=== PATIENT | female | born 1945 | race Caucasian/White ===

== ENCOUNTER 2019-11-15 08:06 | Inpatient (IN) | payer OTHER ==
[2019-11-15] VITALS (7 sets, daily range): BP systolic 145–170; BP diastolic 65–90
[~2019-11-15] VITALS: Ht 165.1 cm; Wt 118.0 kg
[~2019-11-15 08:06] MED LIST: ASPIRIN CHILDRE81 MG PO; CIPROFLOXACIN500 MG PO; CITALOPRAM40 MG PO; COGENTIN0.5 MG PO; ISOSORBIDE30 MG PO; KEFLEX500 MG PO; LAMOTRIGINE25 MG PO; LASIX; METFORMIN; MOTRIN800 MG PO; OMEPRAZOLE D/R20 MG PO; RESTORIL15 MG; RISPERIDONE3 M1 PO; TYLENOL80 MG; ZOCOR40 MG PO; [UNRECOGNIZED DRUG - OTHER] PO; [UNRECOGNIZED DRUG - OTHER] PO
[2019-11-15 09:01] LABS: URINE AMPHETAMINES < 1000 (1000ng/ml); URINE BARBITURATES < 200 (200ng/ml); URINE BENZODIAZEPINES < 200 (200ng/ml); URINE CANNABINOIDS (THC) < 50 (50ng/ml); URINE COCAINE < 300 (300ng/ml); URINE METHADONE < 300 (300ng/ml); URINE OPIATES > 300 (300ng/ml)
[2019-11-15 09:04] LABS: URINE PHENCYCLIDINE < 25 (25ng/ml)
[2019-11-15 09:08] LABS: BASO % 0.4 % (0.0-1.0); EOS # 0.1 10*3/uL (0.0-0.4); EOS % 1.3 % (1.0-4.0); HEMATOCRIT 37.2 % (37.0-47.0); HEMOGLOBIN 11.4 g/dl (12.0-16.0); LYMPH # 1.3 10*3/uL (1.3-4.4); LYMPH % 13.8 % (27.0-41.0); MEAN CELL VOLUME 86.9 fl (81.0-99.0); MEAN CORPUSCULAR HGB 26.6 pg (27.0-31.0); MEAN CORPUSCULAR HGB CONC 30.6 g/dl (33.0-37.0); MEAN PLATELET VOLUME 11.4 fl (9.6-12.3); MONO # 0.6 10*3/uL (0.1-1.0); MONO % 6.9 % (3.0-9.0); NEUT % 77.2 % (47.0-73.0); PLATELET COUNT AUTOMATED 236 10*3/uL (130-400); RED BLOOD COUNT 4.28 10*6/uL (4.10-5.10); RED CELL DISTRI WIDTH 15.4 % (0-14.5); WHITE BLOOD COUNT 9.1 10*3/uL (4.8-10.8)
[2019-11-15 09:13] LABS: ACT PARTIAL THROMBO TIME 24.9 SECONDS (20.0-32.1); INTERNATIONAL NORM RATIO 0.9 (2.0-3.5)
[2019-11-15 09:16] LABS: ALBUMIN 3.3 gm/dl (3.1-4.5); ALKALINE PHOSPHATASE 111 U/L (45-117); BUN 7 mg/dl (7-24); CHLORIDE 103 mmol/L (98-107); SGOT/AST 12 IU/L (3-35); SGPT/ALT 16 U/L (12-78); SODIUM 140 mmol/L (136-145); TOTAL PROTEIN 7.1 gm/dL (6.4-8.2)
[2019-11-15 09:24] LABS: ETHYL ALCOHOL < 3.0 mg/dl (<3)
[2019-11-15 09:36] LABS: CLARITY SL CLOUDY (CLEAR); COLOR YELLOW (YELLOW); GLUCOSE NEGATIVE (NEGATIVE)
[2019-11-15 09:37] LABS: BACTERIA 4+; BILIRUBIN NEGATIVE (NEGATIVE); BLOOD NEGATIVE (NEGATIVE); KETONE NEGATIVE (NEGATIVE); LEUKO ESTERASE NEGATIVE (NEGATIVE); NITRITE POSITIVE (NEGATIVE); PH 7.5 (5.0-9.0); SPECIFIC GRAVITY 1.015 (1.005-1.030); UROBILINOGEN 0.2 E.U./dl (0.2-1.0)
[2019-11-15] MEDS ORDERED: FUROSEMIDE20 M1 PO (11:17)
[2019-11-15] MEDS ORDERED: LIPITOR40 MG PO (11:17)
[2019-11-15] MEDS ORDERED: PREDNISONE20 M1 PO (11:19)
[2019-11-15] MEDS ORDERED: NYSTOP60 GM TP (11:21)
[2019-11-15] MEDS ORDERED: GLUCOPHAGE500 M1 PO (11:23)
[2019-11-15] MEDS ORDERED: SYMB160 INH (11:24)
[2019-11-15] MEDS ORDERED: DICYCLOMINE HYD20 MG PO (11:25)
[2019-11-15] MEDS ORDERED: Ipratropium Brom3 ML INH (11:26)
[2019-11-15] MEDS ORDERED: ACETAMINOPHEN325 M2 PO (11:26)
[2019-11-15] MEDS ORDERED: TYLENOL WITH C1 EACH PO (11:28)
[2019-11-16 07:10] LABS: BASO % 0.3 % (0.0-1.0); EOS # 0.1 10*3/uL (0.0-0.4); EOS % 1.3 % (1.0-4.0); HEMATOCRIT 36.4 % (37.0-47.0); HEMOGLOBIN 11.2 g/dl (12.0-16.0); LYMPH # 1.4 10*3/uL (1.3-4.4); LYMPH % 20.1 % (27.0-41.0); MEAN CELL VOLUME 84.8 fl (81.0-99.0); MEAN CORPUSCULAR HGB 26.1 pg (27.0-31.0); MEAN CORPUSCULAR HGB CONC 30.8 g/dl (33.0-37.0); MEAN PLATELET VOLUME 11.8 fl (9.6-12.3); MONO # 0.6 10*3/uL (0.1-1.0); MONO % 8.4 % (3.0-9.0); NEUT # 4.8 10*3/uL (2.3-7.9); NEUT % 69.5 % (47.0-73.0); PLATELET COUNT AUTOMATED 235 10*3/uL (130-400); RED BLOOD COUNT 4.29 10*6/uL (4.10-5.10); RED CELL DISTRI WIDTH 15.6 % (0-14.5); WHITE BLOOD COUNT 6.9 10*3/uL (4.8-10.8)
[2019-11-16 07:31] LABS: BUN 7 mg/dl (7-24); CHLORIDE 104 mmol/L (98-107); SODIUM 138 mmol/L (136-145)
[2019-11-16 07:32] LABS: CREATININE 0.65 mg/dL (0.55-1.02)
[2019-11-16 08:00] VITALS: BP 136/73
[2019-11-16 12:00] VITALS: BP 103/77
[2019-11-16 16:00] VITALS: BP 110/64
[2019-11-16 20:00] VITALS: BP 112/62
[2019-11-17] VITALS: BP 116/57
[2019-11-17 08:00] VITALS: BP 143/61
[2019-11-17 12:00] VITALS: BP 129/54
[2019-11-17] MEDS ORDERED: TYLENOL WITH C1 EACH PO (15:09)
[2019-11-17 16:00] VITALS: BP 117/57
[2019-11-17 20:00] VITALS: BP 144/71
[2019-11-18] VITALS: BP 147/72
[2019-11-18 08:00] VITALS: BP 139/53
[2019-11-18 12:00] VITALS: BP 127/64
[2019-11-18 16:00] VITALS: BP 121/57
== END 2019-11-18 18:24 | disposition other institution (70) | DRG 690 ==
LOC: ED 08:06 → EDHOLD 10:10 → 5E 10:10
PROVIDERS: Emergency Medicine; Internal Medicine; ADMIT Internal Medicine
DX: N39.0 Urinary tract infection, site not specified (principal); F20.0 Paranoid schizophrenia; Z68.41 Body mass index [BMI] 40.0-44.9, adult; N39.41 Urge incontinence; D64.9 Anemia, unspecified; F17.210 Nicotine dependence, cigarettes, uncomplicated; I25.10 Atherosclerotic heart disease of native coronary artery without angina pectoris; K21.9 Gastro-esophageal reflux disease without esophagitis; E78.5 Hyperlipidemia, unspecified; K22.719 Barrett's esophagus with dysplasia, unspecified; M51.26 Other intervertebral disc displacement, lumbar region; E11.65 Type 2 diabetes mellitus with hyperglycemia; B96.1 Klebsiella pneumoniae [K. pneumoniae] as the cause of diseases classified elsewhere; Z88.8 Allergy status to other drugs, medicaments and biological substances; Z88.5 Allergy status to narcotic agent; Z79.899 Other long term (current) drug therapy; Z98.42 Cataract extraction status, left eye; Z98.41 Cataract extraction status, right eye; Z90.710 Acquired absence of both cervix and uterus; Z82.49 Family history of ischemic heart disease and other diseases of the circulatory system; R60.0 Localized edema

== ENCOUNTER → 2020-02-16 | Outpatient (CLI) | payer OTHER ==
[~2020-02-16] MED LIST changes: +ACETAMINOPHEN325 M2 PO; +DICYCLOMINE HYD20 MG PO; +FUROSEMIDE20 M1 PO; +GLUCOPHAGE500 M1 PO; +Ipratropium Brom3 ML INH; +LIPITOR40 MG PO; +NYSTOP60 GM TP; +PREDNISONE20 M1 PO; +SYMB160 INH; +TYLENOL WITH C1 EACH PO
== END | disposition home or self-care (01) ==
LOC: CT 09:36
DX: M19.011 Primary osteoarthritis, right shoulder (principal); M47.812 Spondylosis without myelopathy or radiculopathy, cervical region; M47.814 Spondylosis without myelopathy or radiculopathy, thoracic region

== ENCOUNTER 2020-10-04 10:10 | Inpatient (IN) | payer OTHER ==
[~2020-10-04] VITALS: Ht 167.6 cm; Wt 113.6 kg
[2020-10-04 10:46] LABS: BASO % 0.1 % (0.0-1.0); EOS % 0.3 % (1.0-4.0); HEMATOCRIT 35.9 % (37.0-47.0); LYMPH # 0.8 10*3/uL (1.3-4.4); MEAN CELL VOLUME 77.2 fl (81.0-99.0); MEAN CORPUSCULAR HGB 22.8 pg (27.0-31.0); MEAN CORPUSCULAR HGB CONC 29.5 g/dl (33.0-37.0); MEAN PLATELET VOLUME 11.1 fl (9.6-12.3); MONO # 0.3 10*3/uL (0.1-1.0); MONO % 4.3 % (3.0-9.0); NEUT # 6.7 10*3/uL (2.3-7.9); NEUT % 84.9 % (47.0-73.0); PLATELET COUNT AUTOMATED 260 10*3/uL (130-400); RED BLOOD COUNT 4.65 10*6/uL (4.10-5.10); RED CELL DISTRI WIDTH 16.8 % (0-14.5); WHITE BLOOD COUNT 7.9 10*3/uL (4.8-10.8)
[2020-10-04 10:50] VITALS: BP 120/66
[2020-10-04 11:01] LABS: ALBUMIN 3.1 gm/dl (3.1-4.5); ALKALINE PHOSPHATASE 93 U/L (45-117); BUN 8 mg/dl (7-24); CHLORIDE 103 mmol/L (98-107); CREATININE 0.71 mg/dL (0.55-1.02); LIPASE 102 U/L (73-393); POTASSIUM 4.1 mmol/L (3.5-5.1); SGOT/AST 13 IU/L (3-35); SGPT/ALT 15 U/L (12-78); SODIUM 135 mmol/L (136-145); TOTAL PROTEIN 7.1 gm/dL (6.4-8.2)
[2020-10-04 11:11] LABS: ACT PARTIAL THROMBO TIME 25.1 SECONDS (20.0-32.1); TROPONIN I < 0.015 ng/ml (<0.045)
[2020-10-04 12:30] VITALS: BP 127/79
[2020-10-04 13:19] LABS: ABG BASE EXCESS 0.1 mmol/L (-2.0-2.0); ARTERIAL BLOOD GAS PH 7.365 (7.35-7.45)
[2020-10-04 13:25] VITALS: BP 111/57
[2020-10-04 16:00] VITALS: BP 125/68
[2020-10-04 20:00] VITALS: BP 106/55
[2020-10-04] MEDS ORDERED: CALCIUM500 M1 PO (21:38)
[2020-10-04] MEDS ORDERED: CELEXA10 MG PO (21:39)
[2020-10-04] MEDS ORDERED: VITAMIN D350 MC2 PO (21:40)
[2020-10-04] MEDS ORDERED: DECADRON6 M1 PO (21:41)
[2020-10-04] MEDS ORDERED: MELATONIN10 M2 PO (21:46)
[2020-10-04] MEDS ORDERED: METFORMIN HYDR500 MG PO (21:47)
[2020-10-04] MEDS ORDERED: MILK OF MA400 MG/51 PO (21:49)
[2020-10-04] MEDS ORDERED: OMEPRAZOLE20 M2 PO (21:50)
[2020-10-04] MEDS ORDERED: RISPERDAL1 M1 PO (21:51)
[2020-10-05] VITALS: BP 141/64
[2020-10-05 06:56] LABS: BASO % 0.1 % (0.0-1.0); HEMATOCRIT 31.9 % (37.0-47.0); LYMPH # 1.5 10*3/uL (1.3-4.4); LYMPH % 21.4 % (27.0-41.0); MEAN CELL VOLUME 77.8 fl (81.0-99.0); MEAN CORPUSCULAR HGB 22.9 pg (27.0-31.0); MEAN CORPUSCULAR HGB CONC 29.5 g/dl (33.0-37.0); MEAN PLATELET VOLUME 11.6 fl (9.6-12.3); MONO # 0.6 10*3/uL (0.1-1.0); MONO % 9.1 % (3.0-9.0); NEUT # 4.8 10*3/uL (2.3-7.9); PLATELET COUNT AUTOMATED 259 10*3/uL (130-400); RED CELL DISTRI WIDTH 16.4 % (0-14.5)
[2020-10-05 07:24] LABS: CHLORIDE 103 mmol/L (98-107); POTASSIUM 3.7 mmol/L (3.5-5.1); SGOT/AST 11 IU/L (3-35); SGPT/ALT 14 U/L (12-78); SODIUM 134 mmol/L (136-145)
[2020-10-05 07:32] LABS: ALKALINE PHOSPHATASE 79 U/L (45-117); BUN 16 mg/dl (7-24); CPK 68 U/L (26-192); CREATININE 0.56 mg/dL (0.55-1.02); LDH 280 U/L (84-246); TOTAL PROTEIN 6.7 gm/dL (6.4-8.2)
[2020-10-05 07:57] LABS: ABG BASE EXCESS 2.8 mmol/L (-2.0-2.0); ARTERIAL BLOOD GAS PH 7.382 (7.35-7.45)
[2020-10-05 08:00] VITALS: BP 144/79
[2020-10-05 12:00] VITALS: BP 129/58
[2020-10-05 15:00] VITALS: BP 136/66
[2020-10-05 20:00] VITALS: BP 150/67
[2020-10-06] VITALS: BP 134/69
[2020-10-06 06:45] LABS: BASO % 0.2 % (0.0-1.0); EOS % 0.1 % (1.0-4.0); HEMATOCRIT 32.3 % (37.0-47.0); LYMPH # 2.7 10*3/uL (1.3-4.4); MEAN CELL VOLUME 77.8 fl (81.0-99.0); MEAN CORPUSCULAR HGB 22.2 pg (27.0-31.0); MEAN CORPUSCULAR HGB CONC 28.5 g/dl (33.0-37.0); MEAN PLATELET VOLUME 11.7 fl (9.6-12.3); MONO # 0.6 10*3/uL (0.1-1.0); MONO % 6.5 % (3.0-9.0); NEUT # 6.2 10*3/uL (2.3-7.9); NEUT % 64.9 % (47.0-73.0); PLATELET COUNT AUTOMATED 261 10*3/uL (130-400); RED BLOOD COUNT 4.15 10*6/uL (4.10-5.10); RED CELL DISTRI WIDTH 16.5 % (0-14.5); WHITE BLOOD COUNT 9.5 10*3/uL (4.8-10.8)
[2020-10-06 06:57] LABS: ALBUMIN 2.9 gm/dl (3.1-4.5); ALKALINE PHOSPHATASE 76 U/L (45-117); BUN 19 mg/dl (7-24); CHLORIDE 105 mmol/L (98-107); LDH 293 U/L (84-246); POTASSIUM 3.9 mmol/L (3.5-5.1); SGOT/AST 10 IU/L (3-35); SGPT/ALT 12 U/L (12-78); SODIUM 139 mmol/L (136-145); TOTAL PROTEIN 6.6 gm/dL (6.4-8.2)
[2020-10-06 06:58] LABS: CPK 42 U/L (26-192)
[2020-10-06 07:40] VITALS: BP 117/67
[2020-10-06 12:00] VITALS: BP 147/88
[2020-10-06 16:00] VITALS: BP 125/66
[2020-10-06 20:29] VITALS: BP 157/73
[2020-10-07] VITALS: BP 169/70; BP 97/66
[2020-10-07 06:24] LABS: BASO % 0.1 % (0.0-1.0); HEMATOCRIT 32.8 % (37.0-47.0); LYMPH # 2.1 10*3/uL (1.3-4.4); LYMPH % 20.4 % (27.0-41.0); MEAN CELL VOLUME 77.7 fl (81.0-99.0); MEAN CORPUSCULAR HGB 22.7 pg (27.0-31.0); MEAN CORPUSCULAR HGB CONC 29.3 g/dl (33.0-37.0); MEAN PLATELET VOLUME 10.6 fl (9.6-12.3); MONO # 0.7 10*3/uL (0.1-1.0); MONO % 7.2 % (3.0-9.0); NEUT # 7.3 10*3/uL (2.3-7.9); PLATELET COUNT AUTOMATED 266 10*3/uL (130-400); RED BLOOD COUNT 4.22 10*6/uL (4.10-5.10); RED CELL DISTRI WIDTH 16.3 % (0-14.5); WHITE BLOOD COUNT 10.1 10*3/uL (4.8-10.8)
[2020-10-07 07:23] LABS: ALBUMIN 3.1 gm/dl (3.1-4.5); BUN 14 mg/dl (7-24); CHLORIDE 102 mmol/L (98-107); CREATININE 0.54 mg/dL (0.55-1.02); POTASSIUM 3.5 mmol/L (3.5-5.1); SGOT/AST 12 IU/L (3-35); SGPT/ALT 12 U/L (12-78); SODIUM 137 mmol/L (136-145); TOTAL PROTEIN 6.8 gm/dL (6.4-8.2)
[2020-10-07 07:26] LABS: ALKALINE PHOSPHATASE 74 U/L (45-117); CPK 37 U/L (26-192); LDH 309 U/L (84-246)
[2020-10-07 08:00] VITALS: BP 126/64
[2020-10-07 12:00] VITALS: BP 153/72
[2020-10-07 16:00] VITALS: BP 108/52
[2020-10-07 20:00] VITALS: BP 98/63
[2020-10-08] VITALS: BP 172/78
[2020-10-08 06:15] LABS: BASO % 0.1 % (0.0-1.0); EOS % 0.1 % (1.0-4.0); HEMATOCRIT 30.6 % (37.0-47.0); LYMPH # 2.6 10*3/uL (1.3-4.4); MEAN CELL VOLUME 77.5 fl (81.0-99.0); MEAN CORPUSCULAR HGB 22.8 pg (27.0-31.0); MEAN CORPUSCULAR HGB CONC 29.4 g/dl (33.0-37.0); MEAN PLATELET VOLUME 11.3 fl (9.6-12.3); MONO # 0.7 10*3/uL (0.1-1.0); MONO % 8.7 % (3.0-9.0); NEUT # 4.4 10*3/uL (2.3-7.9); NEUT % 57.5 % (47.0-73.0); PLATELET COUNT AUTOMATED 269 10*3/uL (130-400); RED BLOOD COUNT 3.95 10*6/uL (4.10-5.10); RED CELL DISTRI WIDTH 16.3 % (0-14.5); WHITE BLOOD COUNT 7.7 10*3/uL (4.8-10.8)
[2020-10-08 06:37] LABS: ALBUMIN 2.9 gm/dl (3.1-4.5); BUN 15 mg/dl (7-24); CHLORIDE 100 mmol/L (98-107); CREATININE 0.51 mg/dL (0.55-1.02); LDH 312 U/L (84-246); POTASSIUM 3.5 mmol/L (3.5-5.1); SGOT/AST 9 IU/L (3-35); SGPT/ALT 11 U/L (12-78); SODIUM 138 mmol/L (136-145); TOTAL PROTEIN 6.1 gm/dL (6.4-8.2)
[2020-10-08 06:38] LABS: ALKALINE PHOSPHATASE 69 U/L (45-117); CPK 27 U/L (26-192)
[2020-10-08 08:00] VITALS: BP 135/66
[2020-10-08 12:00] VITALS: BP 113/56
[2020-10-08 16:00] VITALS: BP 119/59
[2020-10-08 20:00] VITALS: BP 129/67
[2020-10-09] VITALS: BP 141/66
[2020-10-09 06:57] LABS: BASO % 0.1 % (0.0-1.0); EOS # 0.1 10*3/uL (0.0-0.4); EOS % 0.7 % (1.0-4.0); HEMATOCRIT 29.9 % (37.0-47.0); LYMPH # 2.9 10*3/uL (1.3-4.4); LYMPH % 35.3 % (27.0-41.0); MEAN CELL VOLUME 77.3 fl (81.0-99.0); MEAN CORPUSCULAR HGB 22.5 pg (27.0-31.0); MEAN CORPUSCULAR HGB CONC 29.1 g/dl (33.0-37.0); MONO # 0.8 10*3/uL (0.1-1.0); MONO % 10.1 % (3.0-9.0); NEUT # 4.3 10*3/uL (2.3-7.9); NEUT % 53.3 % (47.0-73.0); PLATELET COUNT AUTOMATED 255 10*3/uL (130-400); RED BLOOD COUNT 3.87 10*6/uL (4.10-5.10); RED CELL DISTRI WIDTH 16.1 % (0-14.5); WHITE BLOOD COUNT 8.1 10*3/uL (4.8-10.8)
[2020-10-09 07:18] LABS: ALBUMIN 2.9 gm/dl (3.1-4.5); ALKALINE PHOSPHATASE 65 U/L (45-117); BUN 15 mg/dl (7-24); CHLORIDE 101 mmol/L (98-107); CREATININE 0.51 mg/dL (0.55-1.02); LDH 282 U/L (84-246); POTASSIUM 3.6 mmol/L (3.5-5.1); SGOT/AST 13 IU/L (3-35); SGPT/ALT 10 U/L (12-78); SODIUM 138 mmol/L (136-145); TOTAL PROTEIN 5.9 gm/dL (6.4-8.2)
[2020-10-09 07:21] LABS: CPK 54 U/L (26-192)
[2020-10-09 08:00] VITALS: BP 142/68
[2020-10-09 12:00] VITALS: BP 127/79
[2020-10-09 16:00] VITALS: BP 140/56
== END 2020-10-09 19:10 | disposition other institution (70) | DRG 177 ==
LOC: ED 10:10 → 4E 12:20 → EDHOLD 12:20 → 4E 12:43
PROVIDERS: Emergency Medicine; Internal Medicine; Internal Medicine Critical Care Medicine; ADMIT Family Medicine; ATTEND Family Medicine
PROC: 5A0935A Assistance with Respiratory Ventilation, Less than 24 Consecutive Hours, High Flow/Velocity Cannula (ICD-10-PCS; 2020-10-04)
PROC: XW033E5 Introduction of Remdesivir Anti-infective into Peripheral Vein, Percutaneous Approach, New Technology Group 5 (ICD-10-PCS; principal; 2020-10-05)
PROC: 5A0945A Assistance with Respiratory Ventilation, 24-96 Consecutive Hours, High Flow/Velocity Cannula (ICD-10-PCS; 2020-10-07)
DX: U07.1 COVID-19 (principal); J96.01 Acute respiratory failure with hypoxia; J12.82 Pneumonia due to coronavirus disease 2019; F20.0 Paranoid schizophrenia; E87.1 Hypo-osmolality and hyponatremia; D68.59 Other primary thrombophilia; Z68.41 Body mass index [BMI] 40.0-44.9, adult; D50.9 Iron deficiency anemia, unspecified; E66.01 Morbid (severe) obesity due to excess calories; K22.70 Barrett's esophagus without dysplasia; K21.9 Gastro-esophageal reflux disease without esophagitis; E11.65 Type 2 diabetes mellitus with hyperglycemia; F41.1 Generalized anxiety disorder; Z66 Do not resuscitate; J44.9 Chronic obstructive pulmonary disease, unspecified; F32.9 Major depressive disorder, single episode, unspecified; I25.10 Atherosclerotic heart disease of native coronary artery without angina pectoris; E78.5 Hyperlipidemia, unspecified; F17.210 Nicotine dependence, cigarettes, uncomplicated; Z90.710 Acquired absence of both cervix and uterus; Z88.8 Allergy status to other drugs, medicaments and biological substances; Z79.1 Long term (current) use of non-steroidal anti-inflammatories (NSAID); Z79.82 Long term (current) use of aspirin; Z79.899 Other long term (current) drug therapy; Z79.84 Long term (current) use of oral hypoglycemic drugs; Z88.6 Allergy status to analgesic agent; Z88.5 Allergy status to narcotic agent

== ENCOUNTER 2021-01-28 23:48 | Inpatient (IN) | payer OTHER ==
[~2021-01-28] VITALS: Ht 165.1 cm; Wt 115.9 kg
[~2021-01-28 23:48] MED LIST changes: +CALCIUM500 M1 PO; +CELEXA10 MG PO; +DECADRON6 M1 PO; +MELATONIN10 M2 PO; +METFORMIN HYDR500 MG PO; +MILK OF MA400 MG/51 PO; +OMEPRAZOLE20 M2 PO; +RISPERDAL1 M1 PO; +VITAMIN D350 MC2 PO
[2021-01-29] VITALS (10 sets, daily range): BP systolic 98–145; BP diastolic 44–80
[2021-01-29 00:23] LABS: BASO # 0.1 10*3/uL (0.0-0.1); BASO % 0.6 % (0.0-1.0); EOS # 0.2 10*3/uL (0.0-0.4); EOS % 1.8 % (1.0-4.0); HEMATOCRIT 28.9 % (37.0-47.0); LYMPH # 2.5 10*3/uL (1.3-4.4); LYMPH % 29.6 % (27.0-41.0); MEAN CORPUSCULAR HGB 19.2 pg (27.0-31.0); MEAN PLATELET VOLUME 9.9 fl (9.6-12.3); MONO # 0.7 10*3/uL (0.1-1.0); MONO % 8.6 % (3.0-9.0); NEUT % 59.2 % (47.0-73.0); PLATELET COUNT AUTOMATED 311 10*3/uL (130-400); RED BLOOD COUNT 4.07 10*6/uL (4.10-5.10); RED CELL DISTRI WIDTH 18.8 % (0-14.5); WHITE BLOOD COUNT 8.5 10*3/uL (4.8-10.8)
[2021-01-29 00:34] LABS: ACT PARTIAL THROMBO TIME 23.2 SECONDS (20.0-32.1)
[2021-01-29 00:53] LABS: ALBUMIN 3.2 gm/dl (3.1-4.5); ALKALINE PHOSPHATASE 85 U/L (45-117); BUN 11 mg/dl (7-24); CHLORIDE 103 mmol/L (98-107); CPK 39 U/L (26-192); CREATININE 0.65 mg/dL (0.55-1.02); SGOT/AST 9 IU/L (3-35); SGPT/ALT 13 U/L (12-78); SODIUM 137 mmol/L (136-145); TOTAL PROTEIN 6.7 gm/dL (6.4-8.2)
[2021-01-29 00:54] LABS: CKMB < 1.0 ng/ml (0.5-3.6)
[2021-01-29 00:55] LABS: TROPONIN I < 0.015 ng/ml (<0.045)
[2021-01-29 01:43] LABS: BILIRUBIN Negative (Negative); BLOOD Negative (Negative); CLARITY Clear (Clear); COLOR Yellow (Yellow); GLUCOSE Negative (Negative); KETONE Negative (Negative); LEUKO ESTERASE Negative (Negative); NITRITE Negative (Negative); PH 5.5 (4.5-8.0); UROBILINOGEN 0.2 E.U./dl (0.0-1.0)
[2021-01-29 02:29] LABS: URINE AMPHETAMINES < 1000 (1000ng/ml); URINE BARBITURATES < 200 (200ng/ml); URINE BENZODIAZEPINES < 200 (200ng/ml); URINE CANNABINOIDS (THC) < 50 (50ng/ml); URINE COCAINE < 300 (300ng/ml); URINE METHADONE < 300 (300ng/ml); URINE OPIATES < 300 (300ng/ml)
[2021-01-29 02:33] LABS: URINE PHENCYCLIDINE < 25 (25ng/ml)
[2021-01-29 09:34] LABS: ABG BASE EXCESS 1.7 mmol/L (-2.0-2.0); ARTERIAL BLOOD GAS PH 7.334 (7.35-7.45); ARTERIAL BLOOD GAS PO2 70.5 (80-90)
[2021-01-29] MEDS ORDERED: VALISONE 0.1% C15 GM T (14:38)
[2021-01-30] VITALS: BP 105/50
[2021-01-30 06:43] LABS: BASO % 0.3 % (0.0-1.0); EOS # 0.2 10*3/uL (0.0-0.4); EOS % 1.6 % (1.0-4.0); HEMATOCRIT 29.3 % (37.0-47.0); LYMPH # 2.3 10*3/uL (1.3-4.4); LYMPH % 19.7 % (27.0-41.0); MEAN CELL VOLUME 71.3 fl (81.0-99.0); MEAN CORPUSCULAR HGB 19.5 pg (27.0-31.0); MEAN CORPUSCULAR HGB CONC 27.3 g/dl (33.0-37.0); MEAN PLATELET VOLUME 10.4 fl (9.6-12.3); MONO % 8.2 % (3.0-9.0); NEUT # 8.1 10*3/uL (2.3-7.9); NEUT % 69.7 % (47.0-73.0); PLATELET COUNT AUTOMATED 341 10*3/uL (130-400); RED BLOOD COUNT 4.11 10*6/uL (4.10-5.10); RED CELL DISTRI WIDTH 18.8 % (0-14.5); WHITE BLOOD COUNT 11.7 10*3/uL (4.8-10.8)
[2021-01-30 06:56] LABS: CHLORIDE 100 mmol/L (98-107); POTASSIUM 3.6 mmol/L (3.5-5.1); SODIUM 136 mmol/L (136-145)
[2021-01-30 07:05] LABS: BUN 13 mg/dl (7-24); CREATININE 0.74 mg/dL (0.55-1.02)
[2021-01-30 08:00] VITALS: BP 132/64
[2021-01-30 12:00] VITALS: BP 118/60
[2021-01-30 16:00] VITALS: BP 114/69
[2021-01-30 20:00] VITALS: BP 135/70
[2021-01-31] VITALS: BP 153/76
[2021-01-31 08:00] VITALS: BP 125/56
[2021-01-31 08:03] LABS: BASO % 0.3 % (0.0-1.0); EOS # 0.1 10*3/uL (0.0-0.4); EOS % 1.1 % (1.0-4.0); HEMATOCRIT 28.1 % (37.0-47.0); LYMPH # 1.1 10*3/uL (1.3-4.4); LYMPH % 11.8 % (27.0-41.0); MEAN CELL VOLUME 71.5 fl (81.0-99.0); MEAN CORPUSCULAR HGB 19.3 pg (27.0-31.0); MEAN PLATELET VOLUME 9.7 fl (9.6-12.3); MONO # 0.9 10*3/uL (0.1-1.0); NEUT # 7.3 10*3/uL (2.3-7.9); NEUT % 77.5 % (47.0-73.0); PLATELET COUNT AUTOMATED 304 10*3/uL (130-400); RED BLOOD COUNT 3.93 10*6/uL (4.10-5.10); RED CELL DISTRI WIDTH 18.7 % (0-14.5); WHITE BLOOD COUNT 9.4 10*3/uL (4.8-10.8)
[2021-01-31 08:25] LABS: ALBUMIN 3.2 gm/dl (3.1-4.5); ALKALINE PHOSPHATASE 95 U/L (45-117); BUN 11 mg/dl (7-24); CHLORIDE 96 mmol/L (98-107); CREATININE 0.64 mg/dL (0.55-1.02); POTASSIUM 3.5 mmol/L (3.5-5.1); SGOT/AST 13 IU/L (3-35); SGPT/ALT 13 U/L (12-78); SODIUM 133 mmol/L (136-145); TOTAL PROTEIN 7.1 gm/dL (6.4-8.2); URIC ACID 6.5 mg/dL (2.6-6.0)
[2021-01-31 12:00] VITALS: BP 131/62
[2021-01-31] MEDS ORDERED: FUROSEMIDE40 MG PO (12:57)
[2021-01-31 16:00] VITALS: BP 128/68
[2021-01-31 20:00] VITALS: BP 116/55
[2021-02-01] VITALS: BP 132/59
[2021-02-01 08:00] VITALS: BP 101/45
[2021-02-01 12:00] VITALS: BP 137/82
== END 2021-02-01 16:26 | DRG 291 ==
LOC: ED 23:48 → 4E 01-29 08:18 → EDHOLD 01-29 08:18 → 4E 01-29 14:01
PROVIDERS: Emergency Medicine; Student in an Organized Health Care Education/Training Program; ADMIT Internal Medicine; ATTEND Internal Medicine
PROC: 5A09357 Assistance with Respiratory Ventilation, Less than 24 Consecutive Hours, Continuous Positive Airway Pressure (ICD-10-PCS; principal; 2021-01-29)
PROC: 5A09357 Assistance with Respiratory Ventilation, Less than 24 Consecutive Hours, Continuous Positive Airway Pressure (ICD-10-PCS; 2021-01-30)
PROC: 5A09357 Assistance with Respiratory Ventilation, Less than 24 Consecutive Hours, Continuous Positive Airway Pressure (ICD-10-PCS; 2021-01-31)
PROC: 5A09357 Assistance with Respiratory Ventilation, Less than 24 Consecutive Hours, Continuous Positive Airway Pressure (ICD-10-PCS; 2021-02-01)
DX: I50.31 Acute diastolic (congestive) heart failure (principal); J96.01 Acute respiratory failure with hypoxia; G93.41 Metabolic encephalopathy; F20.0 Paranoid schizophrenia; I25.10 Atherosclerotic heart disease of native coronary artery without angina pectoris; K21.9 Gastro-esophageal reflux disease without esophagitis; E11.65 Type 2 diabetes mellitus with hyperglycemia; N39.41 Urge incontinence; F17.210 Nicotine dependence, cigarettes, uncomplicated; S31.104A Unspecified open wound of abdominal wall, left lower quadrant without penetration into peritoneal cavity, initial encounter; S31.103A Unspecified open wound of abdominal wall, right lower quadrant without penetration into peritoneal cavity, initial encounter; X58.XXXA Exposure to other specified factors, initial encounter; D50.9 Iron deficiency anemia, unspecified; E78.5 Hyperlipidemia, unspecified; M50.220 Other cervical disc displacement, mid-cervical region, unspecified level; Z20.822 Contact with and (suspected) exposure to COVID-19; Z88.6 Allergy status to analgesic agent; Z88.8 Allergy status to other drugs, medicaments and biological substances; Z98.42 Cataract extraction status, left eye; Z98.41 Cataract extraction status, right eye; Z90.710 Acquired absence of both cervix and uterus; Z90.49 Acquired absence of other specified parts of digestive tract; Z82.49 Family history of ischemic heart disease and other diseases of the circulatory system; Y93.89 Activity, other specified; Y92.89 Other specified places as the place of occurrence of the external cause; Y99.8 Other external cause status

== ENCOUNTER 2021-03-26 06:50 | Inpatient (IN) | payer OTHER ==
[~2021-03-26] VITALS: Ht 165.1 cm; Wt 119.7 kg
[~2021-03-26 06:50] MED LIST changes: +FUROSEMIDE40 MG PO; +VALISONE 0.1% C15 GM T
[2021-03-26 06:54] VITALS: BP 129/62
[2021-03-26 07:54] LABS: HEMATOCRIT 26.3 % (37.0-47.0); MEAN CELL VOLUME 68.7 fl (81.0-99.0); MEAN CORPUSCULAR HGB 19.1 pg (27.0-31.0); MEAN CORPUSCULAR HGB CONC 27.8 g/dl (33.0-37.0); MEAN PLATELET VOLUME 9.8 fl (9.6-12.3); NUCLEATED RED BLOOD CELL 0.1 % (0.0-0.0); PLATELET COUNT AUTOMATED 318 10*3/uL (130-400); RED BLOOD COUNT 3.83 10*6/uL (4.10-5.10); RED CELL DISTRI WIDTH 19.6 % (0-14.5)
[2021-03-26 08:10] LABS: MICROCYTOSIS MODERATE; OVALOCYTES FEW; PLATELET SUFFICIENCY NORMAL (NORMAL); POLYCHROMASIA SLIGHT; SCHISTOCYTES FEW; TOTAL CELLS COUNTED 100 #CELLS
[2021-03-26 08:12] LABS: ALKALINE PHOSPHATASE 94 U/L (45-117); BUN 6 mg/dl (7-24); CHLORIDE 97 mmol/L (98-107); CREATININE 0.68 mg/dL (0.55-1.02); LIPASE 49 U/L (73-393); POTASSIUM 3.4 mmol/L (3.5-5.1); SGOT/AST 9 IU/L (3-35); SGPT/ALT 11 U/L (12-78); SODIUM 130 mmol/L (136-145); TROPONIN I < 0.015 ng/ml (<0.045)
[2021-03-26 10:25] VITALS: BP 150/74
[2021-03-26] MEDS ORDERED: BISACODYL10 MG R (10:31)
[2021-03-26] MEDS ORDERED: CELEXA10 MG PO (10:33)
[2021-03-26] MEDS ORDERED: FLEET ENEMA EX230 M1 R (10:34)
[2021-03-26] MEDS ORDERED: TYLENOL EXTRA500 MG PO (11:00)
[2021-03-26 11:09] LABS: ARTERIAL BLOOD GAS PH 7.425 (7.35-7.45); ARTERIAL BLOOD GAS PO2 58.1 (80-90)
[2021-03-26 12:00] VITALS: BP 131/56
[2021-03-26 16:00] VITALS: BP 120/60
[2021-03-26 20:00] VITALS: BP 125/66
[2021-03-27] VITALS: BP 103/62
[2021-03-27 06:27] LABS: BASO % 0.1 % (0.0-1.0); EOS % 0.2 % (1.0-4.0); HEMATOCRIT 26.4 % (37.0-47.0); LYMPH # 1.1 10*3/uL (1.3-4.4); LYMPH % 5.3 % (27.0-41.0); MEAN CORPUSCULAR HGB 19.1 pg (27.0-31.0); MEAN CORPUSCULAR HGB CONC 27.3 g/dl (33.0-37.0); MONO # 1.2 10*3/uL (0.1-1.0); MONO % 5.8 % (3.0-9.0); NEUT # 18.1 10*3/uL (2.3-7.9); NEUT % 87.6 % (47.0-73.0); PLATELET COUNT AUTOMATED 331 10*3/uL (130-400); RED BLOOD COUNT 3.77 10*6/uL (4.10-5.10); RED CELL DISTRI WIDTH 19.9 % (0-14.5); WHITE BLOOD COUNT 20.6 10*3/uL (4.8-10.8)
[2021-03-27 06:38] LABS: ALBUMIN 2.5 gm/dl (3.1-4.5); ALKALINE PHOSPHATASE 96 U/L (45-117); BUN 10 mg/dl (7-24); CHLORIDE 100 mmol/L (98-107); CHOLESTEROL 112 mg/dL (<200); CREATININE 0.52 mg/dL (0.55-1.02); FREE T4 1.17 ng/dl (0.76-1.46); LDL CHOLESTEROL 46 mg/dL (9-159); POTASSIUM 3.8 mmol/L (3.5-5.1); SGOT/AST 8 IU/L (3-35); SGPT/ALT 10 U/L (12-78); SODIUM 134 mmol/L (136-145); TOTAL PROTEIN 6.9 gm/dL (6.4-8.2); TRIGLYCERIDES 107 mg/dl (<150)
[2021-03-27 08:00] VITALS: BP 106/68
[2021-03-27 08:30] LABS: VITAMIN D, 25-HYDROXY 26.2 ng/mL (30-100)
[2021-03-27 12:00] VITALS: BP 126/68
[2021-03-27 16:00] VITALS: BP 109/56
[2021-03-27 20:00] VITALS: BP 128/54
[2021-03-28] VITALS: BP 120/52
[2021-03-28 08:00] VITALS: BP 143/66
[2021-03-28 09:41] LABS: BASO % 0.2 % (0.0-1.0); EOS # 0.2 10*3/uL (0.0-0.4); HEMATOCRIT 26.6 % (37.0-47.0); LYMPH # 1.4 10*3/uL (1.3-4.4); MEAN CELL VOLUME 70.6 fl (81.0-99.0); MEAN CORPUSCULAR HGB 19.4 pg (27.0-31.0); MEAN CORPUSCULAR HGB CONC 27.4 g/dl (33.0-37.0); MEAN PLATELET VOLUME 10.2 fl (9.6-12.3); MONO # 0.8 10*3/uL (0.1-1.0); NEUT # 8.8 10*3/uL (2.3-7.9); NEUT % 78.3 % (47.0-73.0); PLATELET COUNT AUTOMATED 336 10*3/uL (130-400); RED BLOOD COUNT 3.77 10*6/uL (4.10-5.10); RED CELL DISTRI WIDTH 19.5 % (0-14.5); WHITE BLOOD COUNT 11.3 10*3/uL (4.8-10.8)
[2021-03-28 09:53] LABS: BUN 9 mg/dl (7-24); CHLORIDE 100 mmol/L (98-107)
[2021-03-28 09:56] LABS: CREATININE 0.53 mg/dL (0.55-1.02); POTASSIUM 3.7 mmol/L (3.5-5.1); SODIUM 132 mmol/L (136-145)
[2021-03-28 12:00] VITALS: BP 112/58
[2021-03-28 16:00] VITALS: BP 136/70
[2021-03-28 18:00] VITALS: BP 136/70
[2021-03-28 20:00] VITALS: BP 139/62
[2021-03-29] VITALS: BP 136/60
[2021-03-29 08:00] VITALS: BP 142/68
[2021-03-29 12:00] VITALS: BP 129/66
[2021-03-29 16:00] VITALS: BP 138/79
[2021-03-30] VITALS: BP 148/86
[2021-03-30 08:21] VITALS: BP 136/72
[2021-03-30 10:44] VITALS: BP 150/76
[2021-03-30] MEDS ORDERED: LEVOFLOXACIN750 M2 PO (12:28)
== END 2021-03-30 15:01 | DRG 871 ==
LOC: ED 06:50 → EDHOLD 08:38 → 5E 08:38
PROVIDERS: Emergency Medicine; Registered Nurse; ADMIT Internal Medicine; ATTEND Internal Medicine
DX: A41.9 Sepsis, unspecified organism (principal); J96.01 Acute respiratory failure with hypoxia; I50.33 Acute on chronic diastolic (congestive) heart failure; J15.6 Pneumonia due to other Gram-negative bacteria; E44.0 Moderate protein-calorie malnutrition; E87.2 Acidosis; F20.0 Paranoid schizophrenia; Z68.41 Body mass index [BMI] 40.0-44.9, adult; R65.20 Severe sepsis without septic shock; K21.9 Gastro-esophageal reflux disease without esophagitis; K22.70 Barrett's esophagus without dysplasia; Z20.822 Contact with and (suspected) exposure to COVID-19; Z96.659 Presence of unspecified artificial knee joint; I25.10 Atherosclerotic heart disease of native coronary artery without angina pectoris; E78.2 Mixed hyperlipidemia; E11.65 Type 2 diabetes mellitus with hyperglycemia; D50.9 Iron deficiency anemia, unspecified; S31.103A Unspecified open wound of abdominal wall, right lower quadrant without penetration into peritoneal cavity, initial encounter; Z88.6 Allergy status to analgesic agent; Z88.8 Allergy status to other drugs, medicaments and biological substances; Z90.710 Acquired absence of both cervix and uterus; Z82.49 Family history of ischemic heart disease and other diseases of the circulatory system; X58.XXXA Exposure to other specified factors, initial encounter; Y93.89 Activity, other specified; Y92.89 Other specified places as the place of occurrence of the external cause; Y99.8 Other external cause status

== ENCOUNTER 2021-09-28 10:54 | Emergency (ER) | payer OTHER ==
[~2021-09-28] VITALS: Ht 152.4 cm
[~2021-09-28 10:54] MED LIST changes: +BISACODYL10 MG R; +FLEET ENEMA EX230 M1 R; +LEVOFLOXACIN750 M2 PO; +TYLENOL EXTRA500 MG PO
[2021-09-28 11:32] LABS: HEMATOCRIT 24.8 % (37.0-47.0); MEAN CELL VOLUME 68.5 fl (81.0-99.0); MEAN CORPUSCULAR HGB 18.2 pg (27.0-31.0); MEAN CORPUSCULAR HGB CONC 26.6 g/dl (33.0-37.0); MEAN PLATELET VOLUME 10.2 fl (9.6-12.3); PLATELET COUNT AUTOMATED 332 10*3/uL (130-400); RED BLOOD COUNT 3.62 10*6/uL (4.10-5.10); RED CELL DISTRI WIDTH 18.7 % (0-14.5); WHITE BLOOD COUNT 7.3 10*3/uL (4.8-10.8)
[2021-09-28 11:43] LABS: BUN 12 mg/dl (7-24); CHLORIDE 98 mmol/L (98-107); CREATININE 0.71 mg/dL (0.55-1.02); SODIUM 135 mmol/L (136-145)
[2021-09-28 11:59] LABS: MICROCYTOSIS MARKED; PLATELET SUFFICIENCY NORMAL (NORMAL); TOTAL CELLS COUNTED 100 #CELLS
[2021-09-28 12:00] LABS: POLYCHROMASIA SLIGHT
[2021-09-28 13:12] VITALS: BP 130/66
[2021-09-28 13:44] VITALS: BP 125/64
[2021-09-28 14:41] VITALS: BP 121/55
[2021-09-28 15:41] VITALS: BP 107/47
== END 2021-09-28 17:46 ==
LOC: ED 10:54
PROVIDERS: Family Medicine
DX: D64.9 Anemia, unspecified (principal); F17.200 Nicotine dependence, unspecified, uncomplicated; Z88.6 Allergy status to analgesic agent; Z79.899 Other long term (current) drug therapy; Z79.2 Long term (current) use of antibiotics; Z79.82 Long term (current) use of aspirin; Z90.710 Acquired absence of both cervix and uterus; Z96.659 Presence of unspecified artificial knee joint; Z98.61 Coronary angioplasty status

== ENCOUNTER 2022-11-22 10:07 | Inpatient (IN) | payer OTHER ==
[~2022-11-22] VITALS: Ht 167.6 cm; Wt 116.0 kg
[2022-11-22] VITALS (34 sets, daily range): BP systolic 58–205; BP diastolic 30–96
[~2022-11-22 10:07] MED LIST changes: +BENADRYL ALLERG25 M5 PO; +FEROSUL325 MG PO; +GNP ANTACID-AN1 EACH PO; +LEXAPRO20 MG PO; +NEXIUM20 M1 PO; +PREDNISONE10 MG PO; +RISPERDAL2 M1 PO; +TUMS200 MG PO; +ZOFRAN4 MG PO
[2022-11-22 13:55] LABS: BASO % 0.2 % (0.0-1.0); HEMATOCRIT 39.3 % (37.0-47.0); LYMPH # 0.4 10*3/uL (1.3-4.4); LYMPH % 5.7 % (27.0-41.0); MEAN CELL VOLUME 91.4 fl (81.0-99.0); MEAN CORPUSCULAR HGB 26.3 pg (27.0-31.0); MEAN CORPUSCULAR HGB CONC 28.8 g/dl (33.0-37.0); MEAN PLATELET VOLUME 11.4 fl (9.6-12.3); MONO # 0.5 10*3/uL (0.1-1.0); MONO % 7.4 % (3.0-9.0); NEUT # 5.5 10*3/uL (2.3-7.9); NEUT % 86.4 % (47.0-73.0); PLATELET COUNT AUTOMATED 146 10*3/uL (130-400); RED CELL DISTRI WIDTH 15.1 % (0-14.5); WHITE BLOOD COUNT 6.3 10*3/uL (4.8-10.8)
[2022-11-22 14:01] LABS: ALKALINE PHOSPHATASE 69 U/L (46-116); BUN 15 mg/dl (9-23); CHLORIDE 94 mmol/L (98-107); LIPASE 24 U/L (12-53); POTASSIUM 5.9 mmol/L (3.4-5.1); SGPT/ALT 15 U/L (10-49); TOTAL PROTEIN 7.4 gm/dL (6.0-8.0)
[2022-11-22] MEDS ORDERED: ZITHROMAX250 MG PO (14:16)
[2022-11-22] MEDS ORDERED: AUGMENTIN400 MG/5 M PO (14:17)
[2022-11-22] MEDS ORDERED: MELATONIN 5 MG1 EACH PO (14:20)
[2022-11-22] MEDS ORDERED: MUCINEX ER600 MG PO (14:21)
[2022-11-22] MEDS ORDERED: PROTONIX20 MG PO (14:22)
[2022-11-22] MEDS ORDERED: SEREVENT DISKU50 MCG INH (14:24)
[2022-11-22] MEDS ORDERED: SPIRIVA -- 3018 MCG INH (14:25)
[2022-11-22] MEDS ORDERED: ZESTRIL10 MG PO (14:26)
[2022-11-22] MEDS ORDERED: TRAMADOL HCL50 MG PO (14:28)
[2022-11-22 15:56] LABS: ABG BASE EXCESS 6.4 mmol/L (-2.0-2.0); ARTERIAL BLOOD GAS PH 7.402 (7.35-7.45); ARTERIAL BLOOD GAS PO2 53.9 (80-90)
[2022-11-22 17:56] LABS: ABG BASE EXCESS 4.4 mmol/L (-2.0-2.0); ARTERIAL BLOOD GAS PH 7.258 (7.35-7.45); ARTERIAL BLOOD GAS PO2 111.4 (80-90)
[2022-11-22 18:18] LABS: BILIRUBIN Negative (Negative); BLOOD Negative (Negative); CLARITY Clear (Clear); COLOR Yellow (Yellow); GLUCOSE Negative (Negative); KETONE Trace (Negative); LEUKO ESTERASE Negative (Negative); NITRITE Negative (Negative); UROBILINOGEN 0.2 E.U./dl (0.0-1.0)
[2022-11-22 18:29] LABS: FINE GRANULAR CAST 0-2; RBC 0-2 rbc/hpf (0-2)
[2022-11-23] VITALS (95 sets, daily range): BP systolic 93–163; BP diastolic 47–80
[2022-11-23 05:17] LABS: TOTAL PROTEIN 7.3 gm/dL (6.0-8.0)
[2022-11-23 05:32] LABS: POTASSIUM 3.8 mmol/L (3.4-5.1)
[2022-11-23 06:55] LABS: HEMATOCRIT 37.1 % (37.0-47.0); MEAN CORPUSCULAR HGB 26.5 pg (27.0-31.0); MEAN CORPUSCULAR HGB CONC 30.5 g/dl (33.0-37.0); MEAN PLATELET VOLUME 11.5 fl (9.6-12.3); RED BLOOD COUNT 4.27 10*6/uL (4.10-5.10); RED CELL DISTRI WIDTH 15.2 % (0-14.5); WHITE BLOOD COUNT 15.7 10*3/uL (4.8-10.8)
[2022-11-23 06:56] LABS: MANUAL DIFF REFLEX YES; MEAN CELL VOLUME 86.9 fl (81.0-99.0); PLATELET COUNT AUTOMATED 218 10*3/uL (130-400)
[2022-11-23 07:54] LABS: TOTAL CELLS COUNTED 100 #CELLS
[2022-11-23 07:55] LABS: ACANTHOCYTES FEW; BURR CELLS MODERATE; PLATELET SUFFICIENCY NORMAL (NORMAL)
[2022-11-23 07:56] LABS: OVALOCYTES FEW
[2022-11-23 10:05] LABS: ABG BASE EXCESS 7.9 mmol/L (-2.0-2.0); ARTERIAL BLOOD GAS PH 7.339 (7.35-7.45)
[2022-11-23 15:51] LABS: ABG BASE EXCESS 7.6 mmol/L (-2.0-2.0); ARTERIAL BLOOD GAS PH 7.362 (7.35-7.45); ARTERIAL BLOOD GAS PO2 107.2 (80-90)
[2022-11-24] VITALS (64 sets, daily range): BP systolic 93–135; BP diastolic 39–81
[2022-11-24 05:13] LABS: POTASSIUM 4.4 mmol/L (3.4-5.1); TOTAL PROTEIN 6.4 gm/dL (6.0-8.0)
[2022-11-24 06:03] LABS: HEMATOCRIT 32.6 % (37.0-47.0); MEAN CELL VOLUME 87.9 fl (81.0-99.0); MEAN CORPUSCULAR HGB 25.9 pg (27.0-31.0); MEAN CORPUSCULAR HGB CONC 29.4 g/dl (33.0-37.0); MEAN PLATELET VOLUME 11.6 fl (9.6-12.3); PLATELET COUNT AUTOMATED 203 10*3/uL (130-400); RED BLOOD COUNT 3.71 10*6/uL (4.10-5.10); RED CELL DISTRI WIDTH 15.1 % (0-14.5); WHITE BLOOD COUNT 9.2 10*3/uL (4.8-10.8)
[2022-11-24 06:13] LABS: MANUAL DIFF REFLEX YES
[2022-11-24 07:02] LABS: ATYPICAL LYMPHS 2 % (0-0); PLATELET SUFFICIENCY NORMAL (NORMAL); TOTAL CELLS COUNTED 100 #CELLS
[2022-11-24 07:03] LABS: BURR CELLS FEW; OVALOCYTES FEW; POLYCHROMASIA SLIGHT; SCHISTOCYTES FEW
[2022-11-24 08:33] LABS: ABG BASE EXCESS 5.8 mmol/L (-2.0-2.0); ARTERIAL BLOOD GAS PH 7.354 (7.35-7.45); ARTERIAL BLOOD GAS PO2 98.8 (80-90)
[2022-11-24 14:43] LABS: ABG BASE EXCESS 5.2 mmol/L (-2.0-2.0); ARTERIAL BLOOD GAS PH 7.332 (7.35-7.45)
[2022-11-24 14:57] LABS: ARTERIAL BLOOD GAS PO2 121.3 (80-90)
[2022-11-25] VITALS: BP 100/69
[2022-11-25 04:00] VITALS: BP 104/52
[2022-11-25 05:27] LABS: ALKALINE PHOSPHATASE 48 U/L (46-116); BUN 21 mg/dl (9-23); CHLORIDE 102 mmol/L (98-107); POTASSIUM 3.7 mmol/L (3.4-5.1); SGPT/ALT 14 U/L (10-49); TOTAL PROTEIN 6.1 gm/dL (6.0-8.0)
[2022-11-25 06:27] LABS: HEMATOCRIT 31.7 % (37.0-47.0); MEAN CELL VOLUME 90.1 fl (81.0-99.0); MEAN CORPUSCULAR HGB 25.9 pg (27.0-31.0); MEAN CORPUSCULAR HGB CONC 28.7 g/dl (33.0-37.0); MEAN PLATELET VOLUME 11.2 fl (9.6-12.3); PLATELET COUNT AUTOMATED 198 10*3/uL (130-400); RED BLOOD COUNT 3.52 10*6/uL (4.10-5.10); RED CELL DISTRI WIDTH 15.4 % (0-14.5); WHITE BLOOD COUNT 7.7 10*3/uL (4.8-10.8)
[2022-11-25 06:30] LABS: MANUAL DIFF REFLEX YES
[2022-11-25 07:10] LABS: ATYPICAL LYMPHS 5 % (0-0); PLASMA CELL 1 % (0-0); PLATELET SUFFICIENCY NORMAL (NORMAL); POLYCHROMASIA SLIGHT; TARGET CELLS FEW; TOTAL CELLS COUNTED 100 #CELLS
[2022-11-25 07:11] LABS: BURR CELLS FEW; OVALOCYTES FEW; ROULEAUX SLIGHT
[2022-11-25 08:00] VITALS: BP 90/49
[2022-11-25 12:00] VITALS: BP 105/59
[2022-11-25 17:00] VITALS: BP 115/61
[2022-11-25 20:00] VITALS: BP 95/55
[2022-11-26] VITALS (7 sets, daily range): BP systolic 111–147; BP diastolic 55–66
[2022-11-26 06:43] LABS: BASO % 0.2 % (0.0-1.0); EOS # 0.1 10*3/uL (0.0-0.4); EOS % 1.1 % (1.0-4.0); HEMATOCRIT 32.3 % (37.0-47.0); LYMPH # 1.8 10*3/uL (1.3-4.4); LYMPH % 31.1 % (27.0-41.0); MEAN CORPUSCULAR HGB 25.3 pg (27.0-31.0); MEAN CORPUSCULAR HGB CONC 28.2 g/dl (33.0-37.0); MEAN PLATELET VOLUME 10.6 fl (9.6-12.3); MONO # 0.4 10*3/uL (0.1-1.0); MONO % 7.3 % (3.0-9.0); NEUT # 3.4 10*3/uL (2.3-7.9); NEUT % 59.6 % (47.0-73.0); PLATELET COUNT AUTOMATED 186 10*3/uL (130-400); RED BLOOD COUNT 3.59 10*6/uL (4.10-5.10); WHITE BLOOD COUNT 5.6 10*3/uL (4.8-10.8)
[2022-11-26 07:22] LABS: ALKALINE PHOSPHATASE 56 U/L (46-116); BUN 17 mg/dl (9-23); CHLORIDE 101 mmol/L (98-107); POTASSIUM 3.9 mmol/L (3.4-5.1); SGPT/ALT 13 U/L (10-49); TOTAL PROTEIN 6.3 gm/dL (6.0-8.0)
[2022-11-27] VITALS: BP 136/60
[2022-11-27 07:10] LABS: BASO % 0.2 % (0.0-1.0); EOS # 0.1 10*3/uL (0.0-0.4); EOS % 1.2 % (1.0-4.0); HEMATOCRIT 32.3 % (37.0-47.0); LYMPH # 1.4 10*3/uL (1.3-4.4); LYMPH % 28.7 % (27.0-41.0); MEAN CELL VOLUME 87.3 fl (81.0-99.0); MEAN CORPUSCULAR HGB 25.7 pg (27.0-31.0); MEAN CORPUSCULAR HGB CONC 29.4 g/dl (33.0-37.0); MEAN PLATELET VOLUME 10.6 fl (9.6-12.3); MONO # 0.4 10*3/uL (0.1-1.0); MONO % 8.3 % (3.0-9.0); PLATELET COUNT AUTOMATED 223 10*3/uL (130-400); RED CELL DISTRI WIDTH 14.7 % (0-14.5); WHITE BLOOD COUNT 4.9 10*3/uL (4.8-10.8)
[2022-11-27 07:19] LABS: BUN 17 mg/dl (9-23); CHLORIDE 101 mmol/L (98-107); POTASSIUM 3.8 mmol/L (3.4-5.1)
[2022-11-27 08:00] VITALS: BP 134/56
[2022-11-27 12:00] VITALS: BP 132/62
[2022-11-27 16:00] VITALS: BP 140/88
[2022-11-27 20:00] VITALS: BP 100/47
[2022-11-28] VITALS: BP 110/52
[2022-11-28 06:49] LABS: EOS # 0.1 10*3/uL (0.0-0.4); EOS % 1.1 % (1.0-4.0); LYMPH # 1.7 10*3/uL (1.3-4.4); LYMPH % 29.2 % (27.0-41.0); MEAN CORPUSCULAR HGB 26.6 pg (27.0-31.0); MEAN CORPUSCULAR HGB CONC 30.9 g/dl (33.0-37.0); MEAN PLATELET VOLUME 10.7 fl (9.6-12.3); MONO # 0.5 10*3/uL (0.1-1.0); MONO % 8.5 % (3.0-9.0); NEUT # 3.4 10*3/uL (2.3-7.9); NEUT % 60.3 % (47.0-73.0); PLATELET COUNT AUTOMATED 247 10*3/uL (130-400); RED BLOOD COUNT 3.72 10*6/uL (4.10-5.10); RED CELL DISTRI WIDTH 14.8 % (0-14.5); WHITE BLOOD COUNT 5.7 10*3/uL (4.8-10.8)
[2022-11-28 07:01] LABS: BUN 21 mg/dl (9-23); CHLORIDE 106 mmol/L (98-107); POTASSIUM 3.7 mmol/L (3.4-5.1)
[2022-11-28 08:00] VITALS: BP 101/50
[2022-11-28 12:00] VITALS: BP 150/61
[2022-11-28 16:00] VITALS: BP 116/54
[2022-11-28 20:00] VITALS: BP 122/57
[2022-11-29] VITALS: BP 112/44
[2022-11-29 06:41] LABS: BASO % 0.2 % (0.0-1.0); EOS # 0.1 10*3/uL (0.0-0.4); EOS % 1.6 % (1.0-4.0); HEMATOCRIT 31.1 % (37.0-47.0); LYMPH # 1.9 10*3/uL (1.3-4.4); LYMPH % 31.2 % (27.0-41.0); MEAN CELL VOLUME 85.9 fl (81.0-99.0); MEAN CORPUSCULAR HGB 26.2 pg (27.0-31.0); MEAN CORPUSCULAR HGB CONC 30.5 g/dl (33.0-37.0); MEAN PLATELET VOLUME 10.7 fl (9.6-12.3); MONO # 0.6 10*3/uL (0.1-1.0); MONO % 9.4 % (3.0-9.0); NEUT # 3.5 10*3/uL (2.3-7.9); NEUT % 56.8 % (47.0-73.0); PLATELET COUNT AUTOMATED 234 10*3/uL (130-400); RED BLOOD COUNT 3.62 10*6/uL (4.10-5.10); RED CELL DISTRI WIDTH 14.8 % (0-14.5); WHITE BLOOD COUNT 6.2 10*3/uL (4.8-10.8)
[2022-11-29 06:52] LABS: BUN 16 mg/dl (9-23); CHLORIDE 109 mmol/L (98-107); POTASSIUM 3.9 mmol/L (3.4-5.1)
[2022-11-29 08:00] VITALS: BP 120/59
[2022-11-29 12:00] VITALS: BP 119/50
[2022-11-29 16:00] VITALS: BP 123/50
[2022-11-29 20:00] VITALS: BP 124/53
[2022-11-30] VITALS: BP 126/55
[2022-11-30 06:24] LABS: BUN 15 mg/dl (9-23); CHLORIDE 106 mmol/L (98-107)
[2022-11-30 08:00] VITALS: BP 118/53
[2022-11-30 12:00] VITALS: BP 118/53; BP 121/60
[2022-11-30] MEDS ORDERED: TRAMADOL HCL50 MG PO (12:16)
== END 2022-11-30 14:36 | DRG 871 ==
LOC: ED 10:07 → ICCU 14:10 → EDHOLD 14:10 → ICCU 16:17 → 5E 11-26 12:25
PROVIDERS: Emergency Medicine; Family Medicine; Internal Medicine; Internal Medicine Critical Care Medicine; Student in an Organized Health Care Education/Training Program; ADMIT Internal Medicine; ATTEND Internal Medicine
PROC: 5A1945Z Respiratory Ventilation, 24-96 Consecutive Hours (ICD-10-PCS; principal; 2022-11-22)
PROC: 0BH17EZ Insertion of Endotracheal Airway into Trachea, Via Natural or Artificial Opening (ICD-10-PCS; 2022-11-22)
PROC: 5A09357 Assistance with Respiratory Ventilation, Less than 24 Consecutive Hours, Continuous Positive Airway Pressure (ICD-10-PCS; 2022-11-22)
PROC: 02HV33Z Insertion of Infusion Device into Superior Vena Cava, Percutaneous Approach (ICD-10-PCS; 2022-11-22)
PROC: B548ZZA Ultrasonography of Superior Vena Cava, Guidance (ICD-10-PCS; 2022-11-22)
PROC: 5A0935A Assistance with Respiratory Ventilation, Less than 24 Consecutive Hours, High Flow/Velocity Cannula (ICD-10-PCS; 2022-11-25)
PROC: 5A0945A Assistance with Respiratory Ventilation, 24-96 Consecutive Hours, High Flow/Velocity Cannula (ICD-10-PCS; 2022-11-25)
PROC: 5A0935A Assistance with Respiratory Ventilation, Less than 24 Consecutive Hours, High Flow/Velocity Cannula (ICD-10-PCS; 2022-11-27)
PROC: BD1BYZZ Fluoroscopy of Mouth/Oropharynx using Other Contrast (ICD-10-PCS; 2022-11-27)
PROC: 5A0935A Assistance with Respiratory Ventilation, Less than 24 Consecutive Hours, High Flow/Velocity Cannula (ICD-10-PCS; 2022-11-28)
PROC: 5A0935A Assistance with Respiratory Ventilation, Less than 24 Consecutive Hours, High Flow/Velocity Cannula (ICD-10-PCS; 2022-11-29)
PROC: 5A0935A Assistance with Respiratory Ventilation, Less than 24 Consecutive Hours, High Flow/Velocity Cannula (ICD-10-PCS; 2022-11-30)
DX: A41.9 Sepsis, unspecified organism (principal); J12.3 Human metapneumovirus pneumonia; J15.6 Pneumonia due to other Gram-negative bacteria; J96.01 Acute respiratory failure with hypoxia; R65.21 Severe sepsis with septic shock; E87.29 Other acidosis; E87.20 Acidosis, unspecified; E87.1 Hypo-osmolality and hyponatremia; E44.1 Mild protein-calorie malnutrition; Z68.41 Body mass index [BMI] 40.0-44.9, adult; J98.11 Atelectasis; N17.9 Acute kidney failure, unspecified; Z20.822 Contact with and (suspected) exposure to COVID-19; D50.9 Iron deficiency anemia, unspecified; R65.20 Severe sepsis without septic shock; E83.42 Hypomagnesemia; E87.5 Hyperkalemia; E87.8 Other disorders of electrolyte and fluid balance, not elsewhere classified; I25.10 Atherosclerotic heart disease of native coronary artery without angina pectoris; K21.9 Gastro-esophageal reflux disease without esophagitis; E78.5 Hyperlipidemia, unspecified; K22.719 Barrett's esophagus with dysplasia, unspecified; E11.65 Type 2 diabetes mellitus with hyperglycemia; E83.39 Other disorders of phosphorus metabolism; I50.9 Heart failure, unspecified; Z90.710 Acquired absence of both cervix and uterus; F17.210 Nicotine dependence, cigarettes, uncomplicated

== ENCOUNTER 2023-11-29 23:30 | Inpatient (IN) | payer OTHER ==
[~2023-11-29] VITALS: Ht 157.4 cm; Wt 72.8 kg
[~2023-11-29 23:30] MED LIST changes: +AUGMENTIN400 MG/5 M PO; +MELATONIN 5 MG1 EACH PO; +MUCINEX ER600 MG PO; +PROTONIX20 MG PO; +SEREVENT DISKU50 MCG INH; +SPIRIVA -- 3018 MCG INH; +TRAMADOL HCL50 MG PO; +ZESTRIL10 MG PO; +ZITHROMAX250 MG PO
[2023-11-29 23:53] VITALS: BP 107/79
[2023-11-29 23:57] LABS: BILIRUBIN 1+ (Negative); BLOOD Negative (Negative); CLARITY Cloudy (Clear); COLOR Dark Yellow (Yellow); GLUCOSE Negative (Negative); KETONE Trace (Negative); LEUKO ESTERASE 2+ (Negative); NITRITE Negative (Negative)
[2023-11-30] VITALS (13 sets, daily range): BP systolic 94–134; BP diastolic 43–71
[2023-11-30] MEDS ORDERED: CLOBETASOL PROP30 GM T (00:01)
[2023-11-30] MEDS ORDERED: VIBRAMYCIN HYC100 MG PO (00:02)
[2023-11-30 00:06] LABS: BASO % 0.3 % (0.0-1.0); EOS # 0.2 10*3/uL (0.0-0.4); EOS % 1.6 % (1.0-4.0); LYMPH # 1.7 10*3/uL (1.3-4.4); MEAN CELL VOLUME 91.8 fl (81.0-99.0); MEAN CORPUSCULAR HGB 26.5 pg (27.0-31.0); MEAN CORPUSCULAR HGB CONC 28.9 g/dl (33.0-37.0); MEAN PLATELET VOLUME 11.6 fl (9.6-12.3); MONO # 1.5 10*3/uL (0.1-1.0); MONO % 10.2 % (3.0-9.0); NEUT # 10.7 10*3/uL (2.3-7.9); NEUT % 75.5 % (47.0-73.0); PLATELET COUNT AUTOMATED 212 10*3/uL (130-400); RED BLOOD COUNT 2.94 10*6/uL (4.10-5.10); RED CELL DISTRI WIDTH 14.1 % (0-14.5); WHITE BLOOD COUNT 14.2 10*3/uL (4.8-10.8)
[2023-11-30 00:07] LABS: BACTERIA 2+; FINE GRANULAR CAST 0-2; RBC 0-2 rbc/hpf (0-2); WBC 21-30 wbc/hpf (0-5)
[2023-11-30] MEDS ORDERED: LASIX40 MG PO (00:08)
[2023-11-30] MEDS ORDERED: FUROSEMIDE40 MG PO (00:09)
[2023-11-30] MEDS ORDERED: ADVIL LIQUI-GE200 M1 PO (00:10)
[2023-11-30] MEDS ORDERED: MAGOX 400400 MG PO (00:14)
[2023-11-30] MEDS ORDERED: RISPERDAL1 M1 PO (00:17)
[2023-11-30] MEDS ORDERED: STRIVERDI RESPIM4 GM INH (00:30)
[2023-11-30 00:37] LABS: POTASSIUM 5.3 mmol/L (3.4-5.1)
[2023-11-30] MEDS ORDERED: SODIUM CHLORIDE 0.9% 1,000 ML IV SCH ×2 (01:40→06:00)
[2023-11-30] MEDS ORDERED: Vancomycin Hydrochloride 250 ML IV ONE (01:40)
[2023-11-30] MEDS ORDERED: Piperacillin Sodium/Tazobact 50 ML IV ONE (01:45)
[2023-11-30] MEDS ORDERED: Albuterol Sulfate 2.5 MG/3 ML VIAL NEB ONE (03:15)
[2023-11-30] MEDS ORDERED: MAGNESIUM SULFATE 100 ML IV ONE (03:15)
[2023-11-30] MEDS ORDERED: INSULIN REGULAR, HUMAN 1 UNIT/0.01 ML IV ONE (03:15)
[2023-11-30] MEDS ORDERED: DEXTROSE 50% 25 GM/50 ML SYR IV ONE (03:15)
[2023-11-30] MEDS ORDERED: Magnesium Hydroxide 30 ML UDC PO PRN (05:55)
[2023-11-30] MEDS ORDERED: BISACODYL 5 MG TAB PO PRN (05:55)
[2023-11-30] MEDS ORDERED: AZITHROMYCIN 250 ML IV SCH ×2 (05:55→12:00)
[2023-11-30] MEDS ORDERED: Ceftriaxone Sodium 2 GM in SYRINGE INFUSION 20 ML IV SCH (06:00)
[2023-11-30] MEDS ORDERED: DEXTROSE 10 % IN WATER 250 ML IV PRN (06:15)
[2023-11-30] MEDS ORDERED: IBUPROFEN 800 MG TAB PO ONE (06:30)
[2023-11-30] MEDS ORDERED: INSULIN LISPRO 1 UNIT/0.01 ML SQ SCH (07:30)
[2023-11-30 09:33] LABS: ABG BASE EXCESS -0.8 mmol/L (-2.0-2.0); ARTERIAL BLOOD GAS PH 7.29 (7.35-7.45)
[2023-11-30] MEDS ORDERED: Doxycycline Hyclate 100 MG in SODIUM CHLORIDE 0.9% 250 ML IV SCH (10:00)
[2023-11-30] MEDS ORDERED: HEPARIN SODIUM 5,000 UNIT/ML VIAL SC SCH (10:00)
[2023-11-30] MEDS ORDERED: POTASSIUM CHLO20 ME4 PO (10:07)
[2023-11-30] MEDS ORDERED: Albuterol Sulf/Ipratropium 3 ML VIAL NEB PRN (13:35)
[2023-11-30] MEDS ORDERED: Albuterol Sulfate 2.5 MG/3 ML VIAL NEB SCH (14:54)
[2023-11-30 16:09] LABS: POTASSIUM 5.2 mmol/L (3.4-5.1)
[2023-11-30] MEDS ORDERED: ATORVASTATIN CALCIUM 40 MG TABLET PO SCH (22:00)
[2023-12-01] VITALS: BP 119/60; BP 131/59
[2023-12-01] MEDS ORDERED: Pantoprazole Sodium 20 MG TAB PO SCH (06:00)
[2023-12-01 06:21] LABS: FREE T4 1.07 ng/dl (0.89-1.76); POTASSIUM 4.9 mmol/L (3.4-5.1); TOTAL PROTEIN 6.5 gm/dL (6.0-8.0)
[2023-12-01 06:33] LABS: BASO % 0.3 % (0.0-1.0); EOS # 0.2 10*3/uL (0.0-0.4); EOS % 2.3 % (1.0-4.0); HEMATOCRIT 24.1 % (37.0-47.0); LYMPH # 1.2 10*3/uL (1.3-4.4); LYMPH % 11.3 % (27.0-41.0); MEAN CELL VOLUME 89.9 fl (81.0-99.0); MEAN CORPUSCULAR HGB 26.1 pg (27.0-31.0); MEAN PLATELET VOLUME 11.1 fl (9.6-12.3); MONO # 1.3 10*3/uL (0.1-1.0); MONO % 12.2 % (3.0-9.0); NEUT # 7.6 10*3/uL (2.3-7.9); NEUT % 73.4 % (47.0-73.0); PLATELET COUNT AUTOMATED 229 10*3/uL (130-400); RED BLOOD COUNT 2.68 10*6/uL (4.10-5.10); RED CELL DISTRI WIDTH 14.5 % (0-14.5); WHITE BLOOD COUNT 10.4 10*3/uL (4.8-10.8)
[2023-12-01 08:00] VITALS: BP 127/52
[2023-12-01] MEDS ORDERED: RISPERIDONE 1 MG TAB PO SCH (10:00)
[2023-12-01] MEDS ORDERED: ASPIRIN, CHEWABLE 81 MG TAB PO SCH (10:00)
[2023-12-01] MEDS ORDERED: ESCITALOPRAM OXALATE 20 MG TAB PO SCH (10:00)
[2023-12-01] MEDS ORDERED: ISOSORBIDE MONONITRATE 30 MG TAB PO SCH (10:00)
[2023-12-01 12:00] VITALS: BP 117/52
[2023-12-01] MEDS ORDERED: Cefepime Hydrochloride 2 GM in SODIUM CHLORIDE 0.9% 50 ML IV SCH ×2 (14:45→18:00)
[2023-12-01 16:00] VITALS: BP 158/90
[2023-12-01] MEDS ORDERED: VANCOMYCIN/WATER FOR INJ (PEG) 300 ML IV SCH (16:00)
[2023-12-01 20:00] VITALS: BP 138/94
[2023-12-01] MEDS ORDERED: NYSTATIN 15 GM BOT T SCH (22:00)
[2023-12-02] VITALS: BP 123/55
[2023-12-02 06:11] LABS: BASO % 0.3 % (0.0-1.0); EOS # 0.2 10*3/uL (0.0-0.4); EOS % 2.1 % (1.0-4.0); HEMATOCRIT 26.4 % (37.0-47.0); LYMPH # 1.3 10*3/uL (1.3-4.4); LYMPH % 12.5 % (27.0-41.0); MEAN CELL VOLUME 91.7 fl (81.0-99.0); MEAN CORPUSCULAR HGB 25.7 pg (27.0-31.0); MEAN PLATELET VOLUME 10.9 fl (9.6-12.3); MONO # 1.4 10*3/uL (0.1-1.0); MONO % 13.9 % (3.0-9.0); NEUT # 7.1 10*3/uL (2.3-7.9); NEUT % 70.4 % (47.0-73.0); PLATELET COUNT AUTOMATED 260 10*3/uL (130-400); RED BLOOD COUNT 2.88 10*6/uL (4.10-5.10); RED CELL DISTRI WIDTH 14.5 % (0-14.5); WHITE BLOOD COUNT 10.1 10*3/uL (4.8-10.8)
[2023-12-02 06:18] LABS: POTASSIUM 4.6 mmol/L (3.4-5.1)
[2023-12-02 08:00] VITALS: BP 146/54
[2023-12-02 12:00] VITALS: BP 136/63
[2023-12-02 16:00] VITALS: BP 143/66
[2023-12-02] MEDS ORDERED: FOAM BANDAGE HEEL T ONE (17:28)
[2023-12-02] MEDS ORDERED: FOAM BANDAGE 1 EACH BANDAGE T ONE (17:28)
[2023-12-02 20:00] VITALS: BP 143/71
[2023-12-03] VITALS: BP 154/78
[2023-12-03] MEDS ORDERED: FUROSEMIDE 40 MG/4 ML VIAL IV ONE (07:45)
[2023-12-03 08:00] VITALS: BP 148/65
[2023-12-03 08:55] LABS: BUN 11 mg/dl (9-23); CHLORIDE 104 mmol/L (98-107); POTASSIUM 4.4 mmol/L (3.4-5.1)
[2023-12-03 12:00] VITALS: BP 144/50
[2023-12-03] MEDS ORDERED: FUROSEMIDE 40 MG/4 ML VIAL IV SCH (14:00)
[2023-12-03 16:00] VITALS: BP 108/61
[2023-12-03 20:00] VITALS: BP 142/67
[2023-12-04] VITALS: BP 144/65
[2023-12-04 01:14] LABS: URINE CREATININE RANDOM 39.67 mg/dL
[2023-12-04 04:40] LABS: ABG BASE EXCESS 2.7 mmol/L (-2.0-2.0); ARTERIAL BLOOD GAS PH 7.427 (7.35-7.45)
[2023-12-04 08:00] VITALS: BP 142/66
[2023-12-04 08:04] LABS: BUN 16 mg/dl (9-23); CHLORIDE 100 mmol/L (98-107); POTASSIUM 3.9 mmol/L (3.4-5.1)
[2023-12-04 12:00] VITALS: BP 106/51
[2023-12-04 16:00] VITALS: BP 129/60
[2023-12-04] MEDS ORDERED: VANCOMYCIN/WATER FOR INJ (PEG) 250 ML IV SCH (16:00)
[2023-12-04] MEDS ORDERED: METOLAZONE 2.5 MG TAB PO SCH (17:30)
[2023-12-04 20:00] VITALS: BP 121/60
[2023-12-05] VITALS: BP 145/79
[2023-12-05 05:51] LABS: BUN 18 mg/dl (9-23); CHLORIDE 97 mmol/L (98-107); POTASSIUM 3.9 mmol/L (3.4-5.1)
[2023-12-05 05:59] LABS: HEMATOCRIT 27.1 % (37.0-47.0); MEAN CORPUSCULAR HGB 26.3 pg (27.0-31.0); MEAN CORPUSCULAR HGB CONC 29.9 g/dl (33.0-37.0); MEAN PLATELET VOLUME 10.2 fl (9.6-12.3); NUCLEATED RED BLOOD CELL 0.3 % (0.0-0.0); PLATELET COUNT AUTOMATED 342 10*3/uL (130-400); RED BLOOD COUNT 3.08 10*6/uL (4.10-5.10); RED CELL DISTRI WIDTH 14.5 % (0-14.5); WHITE BLOOD COUNT 10.2 10*3/uL (4.8-10.8)
[2023-12-05 06:08] LABS: MANUAL DIFF REFLEX YES
[2023-12-05 06:48] LABS: BASOPHILS 1 % (0-1); TOTAL CELLS COUNTED 100 #CELLS
[2023-12-05 06:49] LABS: PLATELET SUFFICIENCY NORMAL (NORMAL)
[2023-12-05 08:00] VITALS: BP 130/68
[2023-12-05 12:00] VITALS: BP 132/72
[2023-12-05 16:00] VITALS: BP 114/55
[2023-12-05 20:00] VITALS: BP 129/61
[2023-12-06] VITALS: BP 133/66
[2023-12-06 07:18] LABS: HEMATOCRIT 29.4 % (37.0-47.0); MEAN CELL VOLUME 88.3 fl (81.0-99.0); MEAN CORPUSCULAR HGB 25.5 pg (27.0-31.0); MEAN CORPUSCULAR HGB CONC 28.9 g/dl (33.0-37.0); MEAN PLATELET VOLUME 10.2 fl (9.6-12.3); PLATELET COUNT AUTOMATED 365 10*3/uL (130-400); RED BLOOD COUNT 3.33 10*6/uL (4.10-5.10); RED CELL DISTRI WIDTH 14.4 % (0-14.5); WHITE BLOOD COUNT 10.5 10*3/uL (4.8-10.8)
[2023-12-06 07:20] LABS: MANUAL DIFF REFLEX YES
[2023-12-06 07:54] LABS: ALKALINE PHOSPHATASE 173 U/L (46-116); BUN 23 mg/dl (9-23); CHLORIDE 94 mmol/L (98-107); SGPT/ALT 32 U/L (5-49); TOTAL PROTEIN 7.6 gm/dL (6.0-8.0)
[2023-12-06 08:00] VITALS: BP 138/62
[2023-12-06 08:05] LABS: TOTAL CELLS COUNTED 100 #CELLS
[2023-12-06 08:06] LABS: ROULEAUX SLIGHT
[2023-12-06 08:07] LABS: PLATELET SUFFICIENCY NORMAL (NORMAL)
[2023-12-06 12:00] VITALS: BP 117/56
[2023-12-06 15:51] VITALS: BP 117/56
[2023-12-06 20:00] VITALS: BP 110/50
[2023-12-07] VITALS: BP 126/68
[2023-12-07 06:32] LABS: HEMATOCRIT 29.4 % (37.0-47.0); MEAN CELL VOLUME 88.6 fl (81.0-99.0); MEAN CORPUSCULAR HGB 26.2 pg (27.0-31.0); MEAN CORPUSCULAR HGB CONC 29.6 g/dl (33.0-37.0); MEAN PLATELET VOLUME 10.6 fl (9.6-12.3); PLATELET COUNT AUTOMATED 379 10*3/uL (130-400); RED BLOOD COUNT 3.32 10*6/uL (4.10-5.10); RED CELL DISTRI WIDTH 14.4 % (0-14.5); WHITE BLOOD COUNT 10.9 10*3/uL (4.8-10.8)
[2023-12-07 06:50] LABS: MANUAL DIFF REFLEX YES
[2023-12-07 06:53] LABS: ATYPICAL LYMPHS 1 % (0-0); PLATELET SUFFICIENCY NORMAL (NORMAL); TOTAL CELLS COUNTED 100 #CELLS
[2023-12-07 06:54] LABS: POLYCHROMASIA SLIGHT
[2023-12-07 07:08] LABS: BUN 24 mg/dl (9-23); CHLORIDE 93 mmol/L (98-107); POTASSIUM 4.3 mmol/L (3.4-5.1)
[2023-12-07 08:00] VITALS: BP 135/64
[2023-12-07] MEDS ORDERED: FUROSEMIDE 40 MG TAB PO SCH (10:00)
[2023-12-07] MEDS ORDERED: OMNICEF300 MG PO (11:20)
[2023-12-07] MEDS ORDERED: FUROSEMIDE40 MG PO (11:20)
[2023-12-07 12:00] VITALS: BP 113/54
== END 2023-12-07 15:13 | DRG 871 ==
LOC: ED 23:30 → 4E 11-30 05:05 → EDHOLD 11-30 05:05 → 4E 11-30 07:18
PROVIDERS: Family Medicine; Internal Medicine; Internal Medicine Critical Care Medicine; Internal Medicine Nephrology; Registered Nurse; ADMIT Emergency Medicine; ATTEND Emergency Medicine
PROC: 5A09357 Assistance with Respiratory Ventilation, Less than 24 Consecutive Hours, Continuous Positive Airway Pressure (ICD-10-PCS; principal; 2023-11-30)
PROC: 5A0935A Assistance with Respiratory Ventilation, Less than 24 Consecutive Hours, High Flow/Velocity Cannula (ICD-10-PCS; 2023-11-30)
PROC: 5A09357 Assistance with Respiratory Ventilation, Less than 24 Consecutive Hours, Continuous Positive Airway Pressure (ICD-10-PCS; 2023-12-01)
PROC: 5A09357 Assistance with Respiratory Ventilation, Less than 24 Consecutive Hours, Continuous Positive Airway Pressure (ICD-10-PCS; 2023-12-01)
PROC: 5A0935A Assistance with Respiratory Ventilation, Less than 24 Consecutive Hours, High Flow/Velocity Cannula (ICD-10-PCS; 2023-12-01)
PROC: 5A0935A Assistance with Respiratory Ventilation, Less than 24 Consecutive Hours, High Flow/Velocity Cannula (ICD-10-PCS; 2023-12-02)
PROC: 5A09357 Assistance with Respiratory Ventilation, Less than 24 Consecutive Hours, Continuous Positive Airway Pressure (ICD-10-PCS; 2023-12-03)
PROC: 5A09357 Assistance with Respiratory Ventilation, Less than 24 Consecutive Hours, Continuous Positive Airway Pressure (ICD-10-PCS; 2023-12-04)
PROC: 5A09357 Assistance with Respiratory Ventilation, Less than 24 Consecutive Hours, Continuous Positive Airway Pressure (ICD-10-PCS; 2023-12-05)
PROC: 5A0935A Assistance with Respiratory Ventilation, Less than 24 Consecutive Hours, High Flow/Velocity Cannula (ICD-10-PCS; 2023-12-05)
PROC: 5A09357 Assistance with Respiratory Ventilation, Less than 24 Consecutive Hours, Continuous Positive Airway Pressure (ICD-10-PCS; 2023-12-06)
PROC: 5A0935A Assistance with Respiratory Ventilation, Less than 24 Consecutive Hours, High Flow/Velocity Cannula (ICD-10-PCS; 2023-12-06)
PROC: 5A0935A Assistance with Respiratory Ventilation, Less than 24 Consecutive Hours, High Flow/Velocity Cannula (ICD-10-PCS; 2023-12-07)
DX: A41.9 Sepsis, unspecified organism (principal); G93.41 Metabolic encephalopathy; J96.01 Acute respiratory failure with hypoxia; N17.0 Acute kidney failure with tubular necrosis; J15.69 Pneumonia due to other Gram-negative bacteria; N39.0 Urinary tract infection, site not specified; N17.9 Acute kidney failure, unspecified; E87.1 Hypo-osmolality and hyponatremia; I50.32 Chronic diastolic (congestive) heart failure; E87.20 Acidosis, unspecified; I13.0 Hypertensive heart and chronic kidney disease with heart failure and stage 1 through stage 4 chronic kidney disease, or unspecified chronic kidney disease; Z68.42 Body mass index [BMI] 45.0-49.9, adult; R65.20 Severe sepsis without septic shock; I25.10 Atherosclerotic heart disease of native coronary artery without angina pectoris; K21.9 Gastro-esophageal reflux disease without esophagitis; Z96.652 Presence of left artificial knee joint; E66.01 Morbid (severe) obesity due to excess calories; E87.6 Hypokalemia; N18.9 Chronic kidney disease, unspecified; E11.22 Type 2 diabetes mellitus with diabetic chronic kidney disease; D72.9 Disorder of white blood cells, unspecified; D64.9 Anemia, unspecified; E87.8 Other disorders of electrolyte and fluid balance, not elsewhere classified; K22.70 Barrett's esophagus without dysplasia; E11.65 Type 2 diabetes mellitus with hyperglycemia; E55.9 Vitamin D deficiency, unspecified; F51.01 Primary insomnia; Z90.710 Acquired absence of both cervix and uterus; Z88.1 Allergy status to other antibiotic agents; Z88.8 Allergy status to other drugs, medicaments and biological substances; Z88.6 Allergy status to analgesic agent; Z82.49 Family history of ischemic heart disease and other diseases of the circulatory system

== ENCOUNTER → 2023-12-24 | Outpatient (CLI) | payer OTHER ==
[~2023-12-24] MED LIST changes: +ADVIL LIQUI-GE200 M1 PO; +BARIUM SULFATE 98% 340 GM BOT PO ONE; +CLOBETASOL PROP30 GM T; +LASIX40 MG PO; +MAGOX 400400 MG PO; +OMNICEF300 MG PO; +POTASSIUM CHLO20 ME4 PO; +STRIVERDI RESPIM4 GM INH; +VIBRAMYCIN HYC100 MG PO
== END | disposition home or self-care (01) ==
LOC: RAD/SH 09:00
PROVIDERS: ATTEND Internal Medicine
DX: J18.9 Pneumonia, unspecified organism (principal)

== ENCOUNTER 2025-05-19 13:49 | Inpatient (IN) | payer OTHER ==
[~2025-05-19] VITALS: Ht 165.1 cm; Wt 95.5 kg
[~2025-05-19 13:49] MED LIST changes: -BARIUM SULFATE 98% 340 GM BOT PO ONE; +CALCIUM CARBON500 M3 PO; +HYDROCORTISON28.4 G6 T
[2025-05-19 13:55] VITALS: BP 98/54
[2025-05-19] MEDS ORDERED: Albuterol Sulf/Ipratropium 3 ML VIAL NEB ONE (14:10)
[2025-05-19] MEDS ORDERED: SODIUM CHLORIDE 0.9% 500 ML IV ONE ×2 (14:10→17:40)
[2025-05-19] MEDS ORDERED: VITAMIN D350 MCG PO (14:26)
[2025-05-19 14:55] LABS: BASO # 0.0 10*3/uL (0.0-0.1); BASO % 0.4 % (0.0-1.0); EOS # 0.5 10*3/uL (0.0-0.4); EOS % 5.4 % (1.0-4.0); MEAN CELL VOLUME 85.7 fl (81.0-99.0); MEAN CORPUSCULAR HGB 25.6 pg (27.0-31.0); MEAN PLATELET VOLUME 11.6 fl (9.6-12.3); MONO # 0.7 10*3/uL (0.1-1.0); MONO % 7.4 % (3.0-9.0); NEUT # 6.8 10*3/uL (2.3-7.9); NEUT % 71.7 % (47.0-73.0); NUCLEATED RED BLOOD CELL 0.0 % (0.0-0.0); NUCLEATED RED BLOOD CELL 0.0 10*3/uL (0.0-0.0); PLATELET COUNT AUTOMATED 232 10*3/uL (130-400); RED CELL DISTRI WIDTH 16.3 % (0-14.5)
[2025-05-19 15:14] LABS: BILIRUBIN Negative (Negative); BLOOD Negative (Negative); CLARITY Cloudy (Clear); COLOR Yellow (Yellow); KETONE Trace (Negative); LEUKO ESTERASE 1+ (Negative); NITRITE Positive (Negative); PH 5.0 (4.5-8.0); SPECIFIC GRAVITY 1.015 (1.001-1.030); UROBILINOGEN 0.2 E.U./dl (0.0-1.0)
[2025-05-19 15:18] LABS: BUN 64.0 mg/dl (9-23)
[2025-05-19 15:29] LABS: BACTERIA 3+; RBC 0-2 rbc/hpf (0-2); WBC 16-20 wbc/hpf (0-5)
[2025-05-19] MEDS ORDERED: DEXTROSE 50% 25 GM/50 ML VIAL IV PRN (17:15)
[2025-05-19] MEDS ORDERED: SODIUM CHLORIDE 0.9% 1,000 ML IV ONE (17:20)
[2025-05-19 17:24] VITALS: BP 85/41
[2025-05-19] MEDS ORDERED: Ondansetron Hydrochloride 4 MG/2 ML VIAL IV PRN (17:40)
[2025-05-19] MEDS ORDERED: BISACODYL 5 MG TAB PO PRN (17:40)
[2025-05-19] MEDS ORDERED: ACETAMINOPHEN 650 MG SUPP R PRN (17:40)
[2025-05-19] MEDS ORDERED: ACETAMINOPHEN 325 MG TAB PO PRN (17:40)
[2025-05-19] MEDS ORDERED: BISACODYL 10 MG SUPP R PRN (17:40)
[2025-05-19 18:10] VITALS: BP 104/41
[2025-05-19] MEDS ORDERED: Albuterol Sulf/Ipratropium 3 ML VIAL NEB SCH (18:30)
[2025-05-19 20:22] LABS: BUN 61 mg/dl (9-23)
[2025-05-19 20:23] LABS: SGPT/ALT < 7 U/L (5-49)
[2025-05-19] MEDS ORDERED: HEPARIN SODIUM 5,000 UNIT/ML VIAL SC SCH (22:00)
[2025-05-19] MEDS ORDERED: INSULIN LISPRO 1 UNIT/0.01 ML SQ SCH (22:00)
[2025-05-19 23:05] VITALS: BP 97/79
[2025-05-20 07:20] LABS: MEAN CELL VOLUME 86.3 fl (81.0-99.0); MEAN CORPUSCULAR HGB 25.3 pg (27.0-31.0); MEAN PLATELET VOLUME 11.9 fl (9.6-12.3); NUCLEATED RED BLOOD CELL 0.0 % (0.0-0.0); NUCLEATED RED BLOOD CELL 0.0 10*3/uL (0.0-0.0); PLATELET COUNT AUTOMATED 248 10*3/uL (130-400); RED CELL DISTRI WIDTH 16.0 % (0-14.5)
[2025-05-20 07:35] LABS: MANUAL DIFF REFLEX YES
[2025-05-20] MEDS ORDERED: PERFLUTREN PROTEIN-A MICROSPHR 3 ML VIAL IV ONE (07:44)
[2025-05-20 08:00] VITALS: BP 1202/78
[2025-05-20 08:06] LABS: BUN 57.0 mg/dl (9-23); LDL CHOLESTEROL 52.0 mg/dL (9-159)
[2025-05-20 08:09] LABS: PLATELET SUFFICIENCY NORMAL (NORMAL)
[2025-05-20 12:00] VITALS: BP 132/56
[2025-05-20 16:00] VITALS: BP 155/78
[2025-05-20] MEDS ORDERED: Albuterol Sulf/Ipratropium 3 ML VIAL NEB PRN (17:10)
[2025-05-20] MEDS ORDERED: SODIUM CHLORIDE 0.9% 1,000 ML IV SCH (17:10)
[2025-05-20] MEDS ORDERED: FOAM BANDAGE 1 EACH BANDAGE T ONE (17:32)
[2025-05-20] MEDS ORDERED: FOAM BANDAGE HEEL T ONE (17:32)
[2025-05-20 17:50] LABS: BUN 53.0 mg/dl (9-23)
[2025-05-20 20:00] VITALS: BP 125/48
[2025-05-20] MEDS ORDERED: NYSTATIN 15 GM BOT T SCH (22:00)
[2025-05-20] MEDS ORDERED: GUAIFENESIN 600 MG TAB ER PO SCH (22:00)
[2025-05-20] MEDS ORDERED: ATORVASTATIN CALCIUM 40 MG TABLET PO SCH (22:00)
[2025-05-20] MEDS ORDERED: HEEL PROTECTOR DEVICE ONE (22:12)
[2025-05-21] VITALS: BP 112/49
[2025-05-21 06:45] LABS: BASO # 0.0 10*3/uL (0.0-0.1); BASO % 0.5 % (0.0-1.0); EOS # 0.2 10*3/uL (0.0-0.4); EOS % 2.6 % (1.0-4.0); MEAN CELL VOLUME 86.2 fl (81.0-99.0); MEAN CORPUSCULAR HGB 25.1 pg (27.0-31.0); MEAN PLATELET VOLUME 11.4 fl (9.6-12.3); MONO # 0.7 10*3/uL (0.1-1.0); MONO % 8.2 % (3.0-9.0); NEUT # 5.7 10*3/uL (2.3-7.9); NEUT % 65.3 % (47.0-73.0); NUCLEATED RED BLOOD CELL 0.0 % (0.0-0.0); NUCLEATED RED BLOOD CELL 0.0 10*3/uL (0.0-0.0); PLATELET COUNT AUTOMATED 269 10*3/uL (130-400); RED CELL DISTRI WIDTH 16.2 % (0-14.5)
[2025-05-21 07:25] LABS: BUN 39 mg/dl (9-23); SGPT/ALT < 7 U/L (5-49)
[2025-05-21 08:00] VITALS: BP 132/55
[2025-05-21] MEDS ORDERED: FERROUS SULFATE 325 MG TAB PO SCH (10:00)
[2025-05-21] MEDS ORDERED: ASPIRIN, CHEWABLE 81 MG TAB PO SCH (10:00)
[2025-05-21] MEDS ORDERED: Vitamin D 1,000 IU TAB (25 MCG) PO SCH (10:00)
[2025-05-21] MEDS ORDERED: ISOSORBIDE MONONITRATE 30 MG TAB PO SCH (10:00)
[2025-05-21] MEDS ORDERED: ESCITALOPRAM OXALATE 20 MG TAB PO SCH (10:00)
[2025-05-21 12:00] VITALS: BP 108/52
[2025-05-21] MEDS ORDERED: CEFDINIR 300 MG CAP PO SCH (13:03)
[2025-05-21 16:00] VITALS: BP 95/42; BP 99/47
[2025-05-21 20:00] VITALS: BP 117/41
[2025-05-22] VITALS: BP 140/59
[2025-05-22 06:54] LABS: BUN 22.0 mg/dl (9-23)
[2025-05-22 07:41] LABS: BASO # 0.1 10*3/uL (0.0-0.1); BASO % 0.6 % (0.0-1.0); EOS # 0.6 10*3/uL (0.0-0.4); EOS % 8.1 % (1.0-4.0); MEAN CELL VOLUME 86.3 fl (81.0-99.0); MEAN CORPUSCULAR HGB 25.7 pg (27.0-31.0); MEAN PLATELET VOLUME 10.3 fl (9.6-12.3); MONO # 0.6 10*3/uL (0.1-1.0); MONO % 7.2 % (3.0-9.0); NEUT # 4.9 10*3/uL (2.3-7.9); NEUT % 63.4 % (47.0-73.0); NUCLEATED RED BLOOD CELL 0.0 % (0.0-0.0); NUCLEATED RED BLOOD CELL 0.0 10*3/uL (0.0-0.0); PLATELET COUNT AUTOMATED 261 10*3/uL (130-400); RED CELL DISTRI WIDTH 15.9 % (0-14.5)
[2025-05-22 08:00] VITALS: BP 137/63
[2025-05-22 12:00] VITALS: BP 142/61
[2025-05-22] MEDS ORDERED: BISACODYL 5 MG TAB PO ONE (14:00)
[2025-05-22 16:00] VITALS: BP 137/62
[2025-05-22 20:00] VITALS: BP 134/58
[2025-05-23] VITALS: BP 129/50
[2025-05-23 06:17] LABS: BUN 24.0 mg/dl (9-23)
[2025-05-23 08:00] VITALS: BP 154/67
[2025-05-23] MEDS ORDERED: FUROSEMIDE40 MG PO (10:22)
[2025-05-23] MEDS ORDERED: FEROSUL325 MG PO (10:22)
[2025-05-23] MEDS ORDERED: DOXYCYCLINE HY100 M3 PO (10:22)
[2025-05-23] MEDS ORDERED: CEFDINIR300 MG PO (10:22)
[2025-05-23] MEDS ORDERED: JARDIANCE10 MG PO (10:22)
[2025-05-23] MEDS ORDERED: MAGNESIUM OXID400 MG PO (10:24)
[2025-05-23 12:00] VITALS: BP 130/63
== END 2025-05-23 14:12 | DRG 177 ==
LOC: ED 13:49 → EDHOLD 16:30 → 5E 16:30
PROVIDERS: Emergency Medicine; Student in an Organized Health Care Education/Training Program; ADMIT Internal Medicine; ATTEND Internal Medicine
DX: J69.0 Pneumonitis due to inhalation of food and vomit (principal); G93.41 Metabolic encephalopathy; N17.0 Acute kidney failure with tubular necrosis; J96.01 Acute respiratory failure with hypoxia; N30.00 Acute cystitis without hematuria; E87.1 Hypo-osmolality and hyponatremia; E87.20 Acidosis, unspecified; J44.1 Chronic obstructive pulmonary disease with (acute) exacerbation; I50.32 Chronic diastolic (congestive) heart failure; Z20.822 Contact with and (suspected) exposure to COVID-19; E86.0 Dehydration; E87.5 Hyperkalemia; N18.9 Chronic kidney disease, unspecified; E11.22 Type 2 diabetes mellitus with diabetic chronic kidney disease; K21.9 Gastro-esophageal reflux disease without esophagitis; E78.5 Hyperlipidemia, unspecified; D64.9 Anemia, unspecified; K22.70 Barrett's esophagus without dysplasia; E55.9 Vitamin D deficiency, unspecified; E66.9 Obesity, unspecified; I25.10 Atherosclerotic heart disease of native coronary artery without angina pectoris; Z88.1 Allergy status to other antibiotic agents; Z88.8 Allergy status to other drugs, medicaments and biological substances; Z91.09 Other allergy status, other than to drugs and biological substances; Z79.899 Other long term (current) drug therapy; Z79.01 Long term (current) use of anticoagulants; Z79.2 Long term (current) use of antibiotics; Z79.82 Long term (current) use of aspirin; Z90.710 Acquired absence of both cervix and uterus; Z98.42 Cataract extraction status, left eye; Z98.41 Cataract extraction status, right eye; Z90.49 Acquired absence of other specified parts of digestive tract; Z87.891 Personal history of nicotine dependence; Z82.49 Family history of ischemic heart disease and other diseases of the circulatory system; Z83.3 Family history of diabetes mellitus; Z68.35 Body mass index [BMI] 35.0-35.9, adult